=== PATIENT | female | born 1975 | race Hispanic/Latino ===

== ENCOUNTER 2017-12-28 20:49 | Emergency (ER) | payer SELFPAY ==
[2017-12-28 21:11] LABS: #Eosinphils 0.5 thou/uL (0.0-0.7); #Lymphocytes 3.5 thou/uL (1.20-3.40); #Monocytes 0.8 thou/uL (0.11-0.59); %Basophils 0.3 % (0.0-1.0); %Eosinophils 4.6 % (0.0-10.0); %Lymphocytes 32.2 % (21.0-51.0); Hemoglobin 13.7 g/dL (12.0-16.0); Mean Corpuscular HGB CONC 33.7 g/dL (32.0-36.0); Mean Corpuscular Hemoglobin 27.1 pg (27.0-31.0); Mean Corpuscular Volume 80.4 fL (78.0-98.0); Mean Platelet Volume 8.3 fL (7.4-10.4); Platelet Count 328 thou/uL (130-400); RBC Distribution Width 14.9 % (11.5-14.5); Red Blood Cell (RBC) Count 5.04 mill/uL (4.20-5.40); White Blood Cell (WBC) Count 10.7 thou/uL (4.8-10.8)
[2017-12-28 21:32] LABS: ALT (SGPT) 20 U/L (8-55); AST (SGOT) 16 U/L (5-34); Albumin 4.5 g/dL (3.5-5.0); Alkaline Phosphatase 105 U/L (40-150); Anion Gap 13 mmol/L (10-20); BUN (Urea Nitrogen) 8 mg/dL (7.0-18.7); Bilirubin, Total 0.4 mg/dL (0.2-1.2); Calc. Creatinine Clearance 0 mL/min (70-130); Carbon Dioxide 18 mmol/L (22-29); Chloride 110 mmol/L (98-107); Estimated GFR-MDRD 78; Globulin 3.9 g/dL (2.4-3.5); Glucose 106 mg/dL (70-105); Lipase 18 U/L (8-78); Potassium 3.4 mmol/L (3.5-5.1); Protein, Total 8.4 g/dL (6.0-8.3); Sodium 138 mmol/L (136-145)
[2017-12-28] MEDS ORDERED: Ondansetron ODT 8 MG TAB ONE (21:45)
== END 2017-12-28 21:52 | disposition home or self-care (01) ==
LOC: ERS 20:49
DX: R11.2 Nausea with vomiting, unspecified (principal); R19.7 Diarrhea, unspecified; E78.5 Hyperlipidemia, unspecified; E78.2 Mixed hyperlipidemia; I10 Essential (primary) hypertension
CPT/HCPCS: 36415; 80053; 83690; 85025; 99284

== ENCOUNTER 2018-09-01 15:00 | Emergency (ER) | payer SELFPAY ==
[2018-09-01] MEDS ORDERED: Dexamethasone 4 mg/ml Vial ONE (15:52)
[2018-09-01] MEDS ORDERED: Acetaminophen 500 MG TAB ONE (15:52)
--- NOTE | 2018-09-01 16:10 | RAD ---
Chest 2 views HISTORY: Fever. Body aches. Dyspnea. FINDINGS: Cardiac silhouette and pulmonary vasculature are unremarkable. Mediastinum is midline. No c onfluent airspace consolidation, pneumothorax, or pleural fluid are apparent. IMPRESSION: No active cardiopulmonary abnormalities are demonstrated.
== END 2018-09-01 16:47 | disposition home or self-care (01) ==
LOC: ERS 15:00
DX: J20.9 Acute bronchitis, unspecified (principal); E78.5 Hyperlipidemia, unspecified; I10 Essential (primary) hypertension; E11.9 Type 2 diabetes mellitus without complications
CPT/HCPCS: 71046; 87804; J1100

== ENCOUNTER 2019-07-24 08:38 | Emergency (ER) | payer MEDICAID | END 2019-07-24 09:29 | disposition left against medical advice (07) | LOC: ERS 08:38 | DX: Z53.21 Procedure and treatment not carried out due to patient leaving prior to being seen by health care provider (principal) ==

== ENCOUNTER 2019-09-18 13:21 | Emergency (ER) | payer MEDICAID, OTHER ==
[2019-09-18 18:51] LABS: SARS-CoV-2 MS2 Positive; SARS-CoV-2 N Gene Negative; SARS-CoV-2 S Gene Negative; SARS-CoV-2 orf1ab Negative
== END 2019-09-18 14:05 | disposition home or self-care (01) ==
LOC: ERS 13:21
DX: B34.9 Viral infection, unspecified (principal); Z20.828 Contact with and (suspected) exposure to other viral communicable diseases; E78.2 Mixed hyperlipidemia; I10 Essential (primary) hypertension; Z79.84 Long term (current) use of oral hypoglycemic drugs; Z79.899 Other long term (current) drug therapy
CPT/HCPCS: 87635; 99283; U0003

== ENCOUNTER 2020-05-19 17:48 | Inpatient (IN) | payer OTHER, SELFPAY ==
[~2020-05-19 17:48] MED LIST: Iopamidol 370 76% 100 ML VIAL ONE
[2020-05-19 19:18] LABS: Bilirubin Negative (Negative); Blood, Urine Negative (Negative); Clarity Clear (Clear); Glucose, Urine (Dipstick) Greater than 1000 mg/dL (Negative); Ketone, Urine 10 mg/dL (Negative); Leukocyte Negative Leu/uL (Negative); Nitrite Negative (Negative); Protein, Urine (Dipstick) Negative (Neg-Trace); Specific Gravity, Urine 1.025 (1.002-1.036); Urobilinogen Normal mg/dL (Less than 2); pH, Urine 5.5 (5.0-9.0)
[2020-05-19] MEDS ORDERED: Morphine 4 MG/ML VIAL ONE (19:22)
[2020-05-19] MEDS ORDERED: Ondansetron PF 4 MG/2 ML Vial ONE (19:22)
[2020-05-19 19:57] LABS: Hemoglobin 8.8 g/dL (12.0-16.0); Mean Corpuscular HGB CONC 33.3 g/dL (32.0-36.0); Mean Corpuscular Hemoglobin 21.4 pg (27.0-31.0); Mean Corpuscular Volume 79.8 fL (78.0-98.0); Mean Platelet Volume 10.2 fL (7.4-10.4); Platelet Count 181 thou/uL (130-400); Red Blood Cell (RBC) Count 4.12 mill/uL (4.20-5.40); White Blood Cell (WBC) Count 11.1 thou/uL (4.8-10.8)
[2020-05-19 20:00] LABS: Band 20 % (5-11); Eosinophils 2 % (0-10); Lymphocytes 14 % (21-51); MDiff Complete? YES; Monocytes 3 % (0-10); Neutrophil 56 % (42-75); Platelet Morphology Comment Appears Adequate; Polychromasia SLIGHT = 2-3 cells (100X) (0-2/hpf); Reactive Lymphocytes 5 % (0-10); Reflex for Review?? NO
--- NOTE | 2020-05-19 20:06 | CT ---
CT ABDOMEN AND PELVIS WITH IV CONTRAST 05/19/2020 CLINICAL INFORMATION: Upper abdominal pain with pain radiating to each flank. COMPARISON: 08/01/2015 Technique: Multiple contiguous axial CT images are obtained through the abdomen and pelvis with IV contrast. Cor onal reformatted images are provided. FINDINGS: Lower Chest: Lung bases are clear. Vessels: Abdominal aorta is normal in caliber. Abdomen: Portal vein:Patent Gallbladder: Gallbladder calculi are again visualized. Liver: Mild diminished attenuation relative to the spleen suggesting fatty infiltration. The liver is enlarged in craniocaudal dimensions measuring 26 cm. No focal hepatic lesion is identified. Spleen: within normal limits. Pancreas: There is mild pancreatic and peripancreatic inflammatory changes involving the distal body and tail of the pancreas. Findings are suggestive of pancreatitis. Correlation with pancreatic enzymes is recommended. No pancreatic or peripancreatic fluid collection is seen. Adrenals: within normal limits. Kidneys: within normal limits. Bowel: Normal caliber. Appendix: The appendix is visualized and normal in caliber. Peritoneum: No ascites or free air; no fluid collection. Mesentery and Retroperitoneum: No enlarged mesenteric or retroperitoneal lymph nodes. Abdominal Wall: A fat-containing umbilical hernia is again seen. Pelvis: Reproductive Organs: No pelvic masses. Bladder: within normal limits. Bones: Degenerative changes are again seen in the spine. There is spondylolisthesis again present at the lumbosacral junction. IMPRESSION: 1. Evidence of pancreatitis. Correlation with pancreatic enzymes is recommended. 2. Hepatomegaly and hepatic steatosis. 3. Cholelithiasis. 4. Fat-containing umbilical hernia. 5. Spondylolisthesis lumbosacral junction.
[2020-05-19 20:40] LABS: Anion Gap 19 mmol/L (10-20); Carbon Dioxide 18 mmol/L (22-29); Chloride 102 mmol/L (98-107); Potassium 3.7 mmol/L (3.5-5.1); Sodium 136 mmol/L (136-145)
[2020-05-19 20:41] LABS: BUN (Urea Nitrogen) 12 mg/dL (7.0-18.7); Bilirubin, Total 0.2 mg/dL (0.2-1.2); Calc. Creatinine Clearance 0 mL/min (70-130); Calcium 7.9 mg/dL (7.8-10.44); Glucose 238 mg/dL (70-105); Protein, Total 6.2 g/dL (6.0-8.3)
[2020-05-19 20:42] LABS: AST (SGOT) 12 U/L (5-34); Albumin 3.8 g/dL (3.5-5.0); Alkaline Phosphatase 78 U/L (40-110); Globulin 2.4 g/dL (2.4-3.5)
[2020-05-19 20:45] LABS: ALT (SGPT) 12 U/L (8-55); Lipase 53 U/L (8-78)
[2020-05-19] MEDS ORDERED: Ondansetron PF 4 MG/2 ML Vial IVP PRN (23:45)
[2020-05-19] MEDS ORDERED: Ondansetron ODT 4 MG TAB SL PRN (23:45)
[2020-05-19] MEDS ORDERED: Sodium Chloride 0.9% 1,000 ML IV SCH (23:45)
[2020-05-19] MEDS ORDERED: Promethazine HCl 25 MG/ML VIAL IM PRN (23:51)
--- NOTE | 2020-05-19 23:56 | PDOC.HHP ---
Hospitalist HPI - History of Present Illness Abdominal pain History of Present Illness: This is a 44-year-old female patient with a history of hyperlipidemia and hypertension who presents with ongoing abdominal pain for days duration. Patient notes that she woke up this morning with the pain which he thought may be due to dyspepsia. She took some antacids which did not help. Pain became subsequently worse radiating to her back with no obvious aggravating or relieving factors. She presented here for further evaluation. At presentation her vitals were BP 177/100, pulse 112, respiratory 19, temperatu re 98.5 saturating 98% on room air. Labs showed mild leukocytosis of 11.1, anemia of 8.8 from a baseline of 13.7 about 2 years ago. Liver enzymes were within normal limits. CT abdomen was concerning from pancreatitis however lipase level was 53. Patient notes having consumed excessive amounts of alcohol around the New 's Day. Gallbladder calculi were visualized on CT. She is not on any medications known to trigger pancreatitis. She was started on pain relief with morphine and IV fluids at 150 mils per hour. Hospitalist team was consulted to admit. Hospitalist ROS - Review of Systems Constitutional: reports: malaise. denies: fever, chills, sweats, weakness Respiratory: denies: cough, shortness of breath, hemoptysis, SOB with excertion Cardiovascular: denies: chest pain, palpitations, orthopnea, paroxysmal noc. dyspnea Gastrointestinal: reports: nausea, vomiting, abdominal pain. denies: diarrhea, constipation Genitourinary: denies: dysuria, frequency, incontinence, hematuria Musculoskeletal: denies: neck pain, shoulder pain, arm pain Neurological: denies: weakness, numbness, incoordination, change in speech All other systems reviewed; all pertinent +/- noted in HPI/Subj - Medication Medications: Medications: Currently refer to ambulatory order list. Allergies: No known drug allergies Hospitalist History - Past Medical History Other Medical History: Hypertension, hyperlipidemia. - Past Surgical History Other Surgical History: Bilateral tubal ligation. - Family History Family History: reports: no pertinent history - Social History Smoking Status: Never smoker Alcohol: reports: None Living Situation: With Family - Exam General Appearance: awake alert General - other findings: In no acute distress Eye: PERRL, anicteric sclera Heart: RRR, no murmur, no gallops, no rubs, normal peripheral pulses Respiratory: CTAB, no wheezes, no rales, no ronchi, normal chest expansion Gastrointestinal: soft, non-distended, normal bowel sounds, tender to palpation Extremities: no cyanosis, no clubbing, no edema Neurological: cranial nerve grossly intact, no weakness, no focal deficits Musculoskeletal: normal tone Psychiatric: normal affect, normal behavior, A&O x 3 Hospitalist Results - Labs Result Diagrams: 05/19/20 18:51 05/19/20 18:51 Lab results: WBC 11.1 thou/uL (4.8-10.8) H 05/19/20 18:51 Hgb 8.8 g/dL (12.0-16.0) L 05/19/20 18:51 Hct 26.4 % (36.0-47.0) L 05/19/20 18:51 MCV 79.8 fL (78.0-98.0) 05/19/20 18:51 Plt Count 181 thou/uL (130-400) 05/19/20 18:51 Band Neuts % (Manual) 20 % (5-11) H 05/19/20 18:51 Sodium 136 mmol/L (136-145) 05/19/20 18:51 Potassium 3.7 mmol/L (3.5-5.1) 05/19/20 18:51 Chloride 102 mmol/L (98-107) 05/19/20 18:51 Carbon Dioxide 18 mmol/L (22-29) L 05/19/20 18:51 BUN 12 mg/dL (7.0-18.7) 05/19/20 18:51 Creatinine 0.65 mg/dL (0.6-1.1) 05/19/20 18:51 Glucose 238 mg/dL (70-105) H 05/19/20 18:51 Calcium 7.9 mg/dL (7.8-10.44) 05/19/20 18:51 Total Bilirubin 0.2 mg/dL (0.2-1.2) 05/19/20 18:51 AST 12 U/L (5-34) 05/19/20 18:51 ALT 12 U/L (8-55) 05/19/20 18:51 Alkaline Phosphatase 78 U/L (40-110) 05/19/20 18:51 Troponin I Less than 0.010 ng/mL (< 0.028) 05/19/20 18:51 Serum Total Protein 6.2 g/dL (6.0-8.3) 05/19/20 18:51 Albumin 3.8 g/dL (3.5-5.0) 05/19/20 18:51 Lipase 53 U/L (8-78) 05/19/20 18:51 Urine Ketones 10 mg/dL (Negative) A 05/19/20 17:53 Urine Blood Negative (Negative) 05/19/20 17:53 Urine Nitrite Negative (Negative) 05/19/20 17:53 Ur Leukocyte Esterase Negative Stephanie/uL (Negative) 05/19/20 17:53 Hospitalist H&P A/P - Plan Plan: This a 44-year-old female patient with a history of hypertension hyperlipidemia presenting with nausea vomiting with epigastric pain with evaluation concerning for acute pancreatitis. Acute pancreatitis Patient has intensive CT evidence Started on IV fluidswe will continue As needed pain medications. Right upper quadrant ultrasound scan although liver enzymes are normal, she has cholelithiasis. She has no other explanation for her pancreatitis. GI evaluation in a.m. Cholelithiasis Right upper quadrant ultrasound: Enlarged liver Unclear significance Hypertension Continue home meds once verified. VT prophylaxisLovenox CODE STATUSfull code
[2020-05-20 00:07] VITALS: BMI 37.2
[2020-05-20] MEDS: Morphine 2 MG/ML VIAL SLOW IVP PRN ×2 (00:32→04:42)
[2020-05-20] MEDS: Sodium Chloride 0.9% 1,000 ML IV SCH ×2 (06:00)
[2020-05-20 07:22] LABS: Hemoglobin A1c 8.4 % (4.0-6.0)
[2020-05-20 07:23] LABS: BUN (Urea Nitrogen) Less than 4 mg/dL (7.0-18.7); Calc. Creatinine Clearance 179 mL/min (70-130); Calcium 7.9 mg/dL (7.8-10.44); Chloride 100 mmol/L (98-107); Glucose 222 mg/dL (70-105); Potassium 3.6 mmol/L (3.5-5.1); Sodium 131 mmol/L (136-145)
[2020-05-20 07:26] LABS: Carbon Dioxide Less than 8 mmol/L (22-29)
--- NOTE | 2020-05-20 07:45 | ULT ---
Sonogram right upper quadrant HISTORY: Pancreatitis. Abdomen pain. FINDINGS: Multiple shadowing stones in the dependent portion of the gallbladder lumen. Patient was re portedly not tender over the gallbladder fossa at the time of the exam. Common duct is 0.4 cm diameter. Liver is diffusely echogenic and enlarged without focal mass or intrahepatic biliary dilatation. No f ree fluid. Small amount of fluid around the pancreas correlates with edema described on recent CT. IMPRESSION : Cholelithiasis. No evidence of acute biliary obstruction Hepato-steatosis.
--- NOTE | 2020-05-20 08:23 | PDOC.HOSPP ---
- Subjective Encounter Date: 05/20/20 Encounter Time: 12:00 Subjective: Patient reports pain improved, more on the left than the right now. No trouble breathing. - Objective Vital Signs & Weight: Vital Signs (12 hours) Temp Pulse Resp BP BP Pulse Ox 05/20/20 07:59 98.6 F 100 18 145/84 H 97 05/20/20 04:00 98.3 F 102 H 18 137/75 94 L 05/20/20 00:00 98.3 F 96 16 133/79 96 05/19/20 23:27 98.3 F 96 133/79 96 Weight Weight 210 lb 2 oz Result Diagrams: 05/20/20 06:13 05/20/20 06:12 Additional Labs: Accuchecks 05/20/20 04:15 POC Glucose 192 H Hospitalist ROS - Review of Systems Constitutional: denies: fever, chills Respiratory: denies: cough, shortness of breath Cardiovascular: denies: chest pain, palpitations Gastrointestinal: reports: abdominal pain. denies: nausea, vomiting - Medication Medications: Active Medications Generic Name Dose Route Start Last Admin Trade Name Freq PRN Reason Stop Dose Admin Sodium Chloride 1,000 mls @ 150 mls/hr 05/19/20 23:45 05/20/20 06:00 Normal Saline 0.9% IV Not Given .[id number] [facility] Morphine Sulfate 2 mg 05/19/20 23:55 05/20/20 04:42 Morphine 2 Mg/Ml Vial SLOW IVP 2 mg Q4H PRN Administration Pain - Exam General Appearance: NAD, awake alert ENT: moist mucosa Heart: RRR, no murmur, no gallops, no rubs Respiratory: CTAB, no wheezes, no rales, no ronchi Gastrointestinal: soft, non-distended, normal bowel sounds, no guarding, no rigidity, tender to palpation Gastrointestinal - other findings: TATY, mild Extremities: no edema Psychiatric: normal affect, normal behavior, A&O x 3 Hosp A/P - Plan This a 44-year-old female patient with a history of hypertension hyperlipidemia presenting with nausea vomiting with epigastric pain with evaluation concerning for acute pancreatitis. Acute pancreatitis Patient has intensive CT evidence Started on IV fluidswe will continue As needed pain medications. Right upper quadrant ultrasound scan although liver enzymes are normal, she has cholelithiasis. She has no other explanation for her pancreatitis. GI evaluation in a.m. Severe Metabolic Acidosis -check for lactic acid, ketones, drug screens. IV fluids. Check ABG. If pH severely low will need bicarb drip. Possible RTA. Cholelithiasis Right upper quadrant ultrasound: Enlarged liver Unclear significance Hypertension Continue home meds once verified. VT prophylaxisLovenox CODE STATUSfull code
[2020-05-20] MEDS ORDERED: Sodium Chloride 0.9% 1,000 ML IV SCH (08:30)
[2020-05-20] MEDS ORDERED: Prevnar 13-Val Conj/PF 0.5 ML SYRINGE IM ONE (09:00)
[2020-05-20] MEDS ORDERED: FLU VACC QS2020-21(6MOS UP)/PF 60 MCG/0.5 ML SYRINGE IM ONE (09:00)
[2020-05-20 09:02] LABS: #Basophils 0.1 thou/uL (0.0-0.2); #Eosinphils 0.4 thou/uL (0.0-0.7); #Lymphocytes 2.2 thou/uL (1.20-3.40); #Monocytes 0.8 thou/uL (0.11-0.59); #Neutrophils 8.1 thou/uL (1.40-6.50); %Basophils 0.6 % (0.0-1.0); %Eosinophils 3.6 % (0.0-10.0); %Lymphocytes 18.9 % (21.0-51.0); %Monocytes 7.2 % (0.0-10.0); %Neutrophils 69.7 % (42.0-75.0); Hemoglobin 11.6 g/dL (12.0-16.0); Mean Corpuscular HGB CONC 39.5 g/dL (32.0-36.0); Mean Corpuscular Hemoglobin 31.9 pg (27.0-31.0); Mean Corpuscular Volume 80.7 fL (78.0-98.0); Mean Platelet Volume 10.3 fL (7.4-10.4); Platelet Count 180 thou/uL (130-400); Red Blood Cell (RBC) Count 3.63 mill/uL (4.20-5.40); White Blood Cell (WBC) Count 11.6 thou/uL (4.8-10.8)
[2020-05-20] MEDS: Enoxaparin Sodium 40 MG/0.4 ML SYRINGE SC SCH (09:03)
[2020-05-20 09:11] LABS: SARS-CoV-2 MS2 Positive; SARS-CoV-2 N Gene Negative; SARS-CoV-2 S Gene Negative; SARS-CoV-2 by NAA Not Detected (NotDetected); SARS-CoV-2 orf1ab Negative
[2020-05-20 09:55] LABS: Acetaminophen Less than 6.0 mcg/mL (10.0-30.0); Alcohol Less than 10 mg/dL (Less than 10); Salicylate Less than 8.0 mg/dL (15.0-30.0)
[2020-05-20 12:03] LABS: Lactic Acid 1.7 mmol/L (0.5-2.2)
[2020-05-20] MEDS ORDERED: Ondansetron PF 4 MG/2 ML Vial IVP PRN (12:51)
[2020-05-20] MEDS ORDERED: Ondansetron ODT 4 MG TAB SL PRN (12:51)
[2020-05-20] MEDS ORDERED: Dextrose 50% Abboject 50 ML SYRINGE SLOW IVP PRN (12:54)
[2020-05-20] MEDS ORDERED: HumaLOG 300 UNITS/3 ML VIAL SC PRN ×2 (12:54)
[2020-05-20] MEDS ORDERED: Dextrose 5% in Water 1,000 ML IV PRN (12:54)
[2020-05-20 13:19] LABS: Base Excess (BEa) -2.8 mEq/L (-2.0 to +3.0); CO2 Tension 38.2 mmHg (35.0-45.0); Calcium, Ionized (arterial) 1.17 mmol/L (1.12-1.30); Carboxyhemoglobin (COHb) 0.6 gm% (0.0-3.0); Hemoglobin (Hb) 10.7 g/dL (12.0-16.0); O2 Tension (PaO2), arterial 70.8 mmHg (80.0-100.0); Potassium - ABG Lab 3.76 mmol/L (3.70-5.30); pH, Arterial 7.38 (7.35-7.45)
[2020-05-20 13:24] LABS: Puncture Site LRA
[2020-05-20] MEDS: Lactated Ringer's 1,000 ML IV SCH ×2 (14:01→21:00)
--- NOTE | 2020-05-20 14:43 | CON ---
DATE OF CONSULTATION: 05/20/2020 REQUESTING PHYSICIAN: Dr. King. REASON FOR CONSULTATION: Pancreatitis. HISTORY OF PRESENT ILLNESS: Abby Pickens is a 44-year-old woman with a history of diabetes, obesity, hypertension, and hyperlipidemia. She has no prior history of gastrointestinal, pancreatic, or biliary disease or illness. She was admitted to the hospital yesterday with acute pancreatitis. Essentially, she has no chronic gastrointestinal symptoms, but early in the morning yesterday she had a fairly acute onset of pain in the epigastrium/right upper quadrant. This is fairly constant. She thought it was indigestion and took some Tums, but this was not effective at all. The pain escalated with a lot of bloating sensation in the upper abdomen. She started to have some radiation to the back, particularly with deep inspiration. She became nauseated and had several episodes of nonbloody emesis, which prompted her presentation. Upon arrival, laboratory studies demonstrated normal LFTs, normal amylase and lipase, but CT scan of the abdomen and pelvis does demonstrate peripancreatic edema and fluid around the distal body and tail of the pancreas. Ultrasound imaging also demonstrate gallstones with normal common bile duct. Overnight, the patient has done pretty well, has remained hemodynamically stable and normal saline running at 150 mL/h, n.p.o. status. However, she is acidotic today. There is no respiratory distress. She reports alcohol use is rare, but she did have several drinks 3 days ago on [place]. REVIEW OF SYSTEMS: Full review of systems including constitutional, head, eyes, ears, nose, throat, GI, , cardiovascular, respiratory, musculoskeletal, and neurologic systems is negative except as noted in the HPI. PAST MEDICAL HISTORY: Obesity, diabetes, hypertension, hyperlipidemia, bilateral tubal ligation. OUTPATIENT MEDICATIONS: 1. Lisinopril. 2. Metformin. 3. Glimepiride. ALLERGIES: NO KNOWN DRUG ALLERGIES. INPATIENT MEDICATIONS: 1. Lovenox. 2. Morphine p.r.n. 3. Zofran p.r.n. 4. Normal saline 150 mL/h. FAMILY HISTORY: Noncontributory. SOCIAL HISTORY: No smoking. No drug use. Alcohol use is rare, but she did have several drinks 3 days ago on s Francesca. PHYSICAL EXAMINATION: VITAL SIGNS: Temperature 98.5, pulse is 97, blood pressure 123/77, 95% oxygen saturation on room air. GENERAL: A 44-year-old woman, lying in bed comfortably, in no acute distress. SKIN: No jaundice. No rashes were palpable. HEENT: Eyes, no scleral icterus. Extraocular movements intact. ENT, mucous membranes moist. No oral lesions. LYMPH: No submandibular or supraclavicular lymphadenopathy. THYROID: Nontender to palpation. HEART: Regular rate and rhythm. LUNGS: Clear to auscultation bilaterally. ABDOMEN: Nondistended. Bowel sounds present though hypoactive. The abdomen is soft. There is some tenderness to palpation in the epigastrium, but no guarding or rebound tenderness. No significant tenderness in the right upper quadrant. EXTREMITIES: No peripheral edema. VESSELS: Radial pulses 2+ bilaterally. NEURO: Cranial nerves 2 through 12 intact bilaterally. No focal deficits. LABORATORY STUDIES: Hemoglobin level was initially 8.8, but this morning is 11.6; hematocrit initially 26.4, but now 29.3; WBC 11.6; platelets 180. Notably, plasma appeared lipemic on blood draw on admission yesterday. Sodium is 131, potassium 3.6, chloride 100, bicarb less than 8, BUN less than 4, creatinine only 0.61, glucose 219. Hemoglobin A1c elevated to 8.4%. Lipase normal at 53, amylase normal at 34.8, triglycerides normal at 104. Troponin negative. LFTs all normal with total bilirubin 0.2, alkaline phosphatase 78, AST 12, ALT 12, albumin 3.8. Beta hydroxybutyrate was elevated to 0.39. Urinalysis was positive for glucose and ketones. COVID PCR was negative. Blood levels for alcohol, acetaminophen, and salicylates were all negative. IMAGING STUDIES: CT of the abdomen and pelvis demonstrated changes of mild pancreatitis around the distal body and tail of the pancreas with no peripancreatic fluid collection or other complication. There is a fat containing umbilical hernia. Fatty liver with hepatomegaly and also gallstones. Abdominal ultrasound confirmed gallstones within the gallbladder, but normal common bile duct of only 4 mm. ASSESSMENT AND PLAN: 1. Acute pancreatitis, first episode. 2. Cholelithiasis. 3. Metabolic acidosis, likely multifactorial. The patient's clinical presentation and CT findings are indeed consistent with acute pancreatitis, despite the normal lipase and amylase values. Daily trends of amylase and lipase are really of limited value, so I do agree with the diagnosis of acute pancreatitis. This would be her first episode. I am not sure of the reason for this severity of her metabolic acidosis, though I do note the ketonuria, so this is probably multifactorial. Recommend continuing current supportive care with n.p.o. status, antiemetics and analgesia as needed, and IV fluids. Consider switching from normal saline to lactated Ringer's, current rate of 150 mL/h seems reasonable. Aside from the acidosis, other lab parameters are all favorable including the BUN. Would trend CBC, CMP, and lipase tomorrow. With regard to the etiology of the pancreatitis, this is not 100% clear. There is no evidence of choledocholithiasis, but she does have cholelithiasis, and may have passed a stone. She did indulge in alcohol 3 days ago, but I feel this is less likely to be alcohol induced than biliary pancreatitis. Accordingly, it would be appropriate to consider general surgical consultation versus outpatient referral for cholecystectomy once her current episode of pancreatitis has resolved. Thank you for the consultation. Please call anytime with questions or concerns. Job ID: [id number]
[2020-05-20] MEDS ORDERED: Acetaminophen 325 MG TAB PO PRN (21:07)
[2020-05-21] MEDS: Lactated Ringer's 1,000 ML IV SCH ×2 (04:31→10:00)
[2020-05-21 06:31] LABS: #Eosinphils 0.3 thou/uL (0.0-0.7); #Lymphocytes 2.1 thou/uL (1.20-3.40); #Monocytes 0.7 thou/uL (0.11-0.59); #Neutrophils 5.8 thou/uL (1.40-6.50); %Basophils 0.3 % (0.0-1.0); %Eosinophils 3.1 % (0.0-10.0); %Lymphocytes 23.7 % (21.0-51.0); %Monocytes 7.6 % (0.0-10.0); %Neutrophils 65.4 % (42.0-75.0); Hemoglobin 10.2 g/dL (12.0-16.0); Mean Corpuscular HGB CONC 35.9 g/dL (32.0-36.0); Mean Corpuscular Hemoglobin 29.3 pg (27.0-31.0); Mean Corpuscular Volume 81.5 fL (78.0-98.0); Mean Platelet Volume 11.1 fL (7.4-10.4); Platelet Count 179 thou/uL (130-400); Red Blood Cell (RBC) Count 3.48 mill/uL (4.20-5.40); White Blood Cell (WBC) Count 8.8 thou/uL (4.8-10.8)
[2020-05-21 07:11] LABS: ALT (SGPT) 9 U/L (8-55); AST (SGOT) 16 U/L (5-34); Albumin 3.1 g/dL (3.5-5.0); Alkaline Phosphatase 61 U/L (40-110); Anion Gap 23 mmol/L (10-20); BUN (Urea Nitrogen) Less than 4 mg/dL (7.0-18.7); Bilirubin, Total 0.5 mg/dL (0.2-1.2); Calc. Creatinine Clearance 176 mL/min (70-130); Calcium 8.4 mg/dL (7.8-10.44); Carbon Dioxide 14 mmol/L (22-29); Chloride 101 mmol/L (98-107); Globulin 4.1 g/dL (2.4-3.5); Glucose 212 mg/dL (70-105); Lipase 21 U/L (8-78); Potassium 3.8 mmol/L (3.5-5.1); Protein, Total 7.2 g/dL (6.0-8.3); Sodium 134 mmol/L (136-145)
[2020-05-21 07:41] VITALS: BP 115/73; TEMP 98.3
[2020-05-21] MEDS: Enoxaparin Sodium 40 MG/0.4 ML SYRINGE SC SCH (13:03)
[2020-05-21 14:00] LABS: Amphetamine Not Detected (NotDetected); Barbiturates Screen Not Detected (NotDetected); Benzodiazepine Screen Not Detected (NotDetected); Cocaine Metabolite Screen Not Detected (NotDetected); Medtox Reader # READER 4; Methadone Not Detected (NotDetected); Methamphetamine Not Detected (NotDetected); Opiate Screen Not Detected (NotDetected); Oxycodone Screen Not Detected (NotDetected); Phencyclidine (PCP) Not Detected (NotDetected); THC/Cannabinoid Screen Not Detected (NotDetected); Tricyclic Screen Not Detected (NotDetected)
[2020-05-21 14:01] LABS: Medtox Control Line Valid? VALID (VALID)
--- NOTE | 2020-05-21 14:17 | CON ---
DATE OF CONSULTATION: 05/21/2020 REQUESTING PHYSICIAN: Ryan Martínez MD HISTORY OF PRESENT ILLNESS: This is a 44-year-old woman. She is a G8, P8, who was admitted on 05/19/2020 with insidious onset epigastric abdominal pain, radiating to her back. She describes the pain initially as indigestion type. Antacids failed to resolve the pain. The pain intensified to a high 9/10. As a result, the patient presented to emergency department. She tried to eat breakfast that day, which provoked nausea and nonbilious emesis. She denies any fevers or chills. She denies any abdominal bloating, hematochezia, or melena. The patient reports having had at least 9 beers on 05/17. She has not experienced similar pain in the past. Last time she had anything to eat or drink was 2 days ago. At the time of my evaluation, she reports only minimal amount of pain, mostly in the left upper quadrant. PAST MEDICAL HISTORY: Pertinent for: 1. Essential hypertension. 2. Type 2 diabetes mellitus. PAST SURGICAL HISTORY: Pertinent for: 1. x2. 2. Bilateral tubal ligation. SOCIAL HISTORY: The patient denies any cigarette smoking or illicit drug abuse. She admits to occasional intake of ethanol in moderate amounts, although she was binge drinking to celebrate the New Year. FAMILY HISTORY: Notable for hyperlipidemia, diabetes mellitus, and essential hypertension. She denies any family history of colon cancer or heart disease. PREHOSPITALIZATION MEDICATIONS: Include: 1. Metformin 1000 mg p.o. b.i.d. 2. Lisinopril 10 mg p.o. daily. 3. Glimepiride 4 mg p.o. daily. ALLERGIES: THE PATIENT DENIES ANY KNOWN DRUG ALLERGIES. REVIEW OF SYSTEMS: Ten-point review of systems essentially unremarkable except as stated in past medical history and chief complaint. PHYSICAL EXAMINATION: GENERAL: A 44-year-old morbidly obese woman, who is otherwise coherent and interactive and appears stated age. The patient is alert and oriented x3. She appears to be in no acute distress at the time of my evaluation. VITAL SIGNS: Today include blood pressure 115/73, pulse is 94, respiratory rate is 18, maximum temperature in the last 24 hours is 99.8 degrees Fahrenheit, and oxygen saturation is 94% on room air. HEENT: Normocephalic and atraumatic. Pupils are equally round and reactive to light and accommodation. She has no scleral icterus present. HEART: Regular rate and rhythm. No murmurs or gallops auscultated. LUNGS: Clear to auscultation bilaterally. Her breathing regular and unlabored. ABDOMEN: Soft and obese with minimum left upper quadrant tenderness to palpation. She has no peritoneal signs on examination. Liver and spleen otherwise nonpalpable below costal margin. She has a healed low Pfannenstiel incision, consistent with previous history of C-sections. NEUROLOGIC: No focal deficits present. LABORATORY FINDINGS: Today include a CBC with normal white blood cell count at 8800, hemoglobin and hematocrit stable at 10.2 and 28.4 respectively, and platelet count is 174,000. Metabolic profile: Sodium 134, potassium 3.8, chloride is 101, bicarb is 14, BUN is less than 4, creatinine is 0.62, glucose is 212, total bilirubin is 0.5, AST and ALT are 16 and 9 respectively, and alkaline phosphatase is 61. Serum lipase today is 21 compared to 50 units/L on 05/19/2020. Anion gap is 23 mmol/L. I personally reviewed CT scan of the abdomen and pelvis obtained on 05/19/2020, which is remarkable for pancreatic and peripancreatic inflammatory process involving the body and tail of the pancreas. Incidental cholelithiasis is noted. Abdominal ultrasound obtained on 05/20/2020 reveals intraluminal gallstones without any pericholecystic fluid or gallbladder wall thickening present. Common bile duct is normal in diameter for this patient's age at 4.1 mm. IMPRESSIONS: 1. Resolving acute pancreatitis, which I suspect is alcohol pancreatitis given onset of pain was within 48 hours of alcohol binge drinking. 2. Cholelithiasis without any radiographic or laboratory evidence of acute cholecystitis. 3. Type 2 diabetes mellitus with resolving diabetic ketoacidosis. RECOMMENDATIONS: 1. Continue with conservative management. The patient may resume oral intake at the discretion of Primary Service. 2. There is no acute surgical indication for this patient at this time as I suspect that abdominal pain is unrelated to gallstones. 3. The patient may be discharged home to follow up with General Surgery in the future as needed if the cholelithiasis becomes symptomatic. Above findings and recommendations have been discussed with the patient who indicates understanding information given. I have answered her questions. Thank you again, Dr. Martínez, for allowing me the opportunity to participate in the care of this patient. Job ID: [id number]
--- NOTE | 2020-05-21 15:56 | PDOC.DS.DS ---
Provider - Provider Date of Admission: 05/20/20 08:19 Date of Discharge: 05/21/20 Admitting Provider: Ray Elena MD Consultations: Gastroentrology (Dr. Ryan Morales), General Surgery (Dr. Jeffrey Marcial) Primary Care Physician: Gerda Pham DO Course - Hospital Course Hospital Course: Discharge diagnosis: 1. Acute pancreatitis 2. Acute pancreatitis most likely secondary to alcohol abuse 3. Cholelithiasis 4. Hyponatremia Hospital course: Patient is a pleasant 44-year-old lady who was admitted to the hospital on May 19, 2020 for acute pancreatitis. She improved with pain medications and intravenous fluids. CT scan of the abdomen and pelvis done on May 19 and evidence of pancreatitis, hepatomegaly and hepatic steatosis, cholelithiasis, fat-containing umbilical hernia and spondylolisthesis of lumbosacral junction. Abdominal ultrasound showed Allyn lithiasis with no evidence of acute biliary o bstruction. She also had hepatosteatosis. She was seen by gastroenterology and general surgery services. She improved clinically. She has been advised to avoid alcohol abuse. It was felt that her acute pancreatitis was most likely secondary to alcohol abuse and not secondary to cholelithiasis. She is being discharged home in a stable condition. Many thanks for allowing me to participate in your patient's care. Please feel free to contact me with any questions or concerns. Discharge destination: Home Total amount of time spent coordinating this discharge: 32 minutes Resuscitation Status: 05/19/20 23:51 Resuscitation Status Routine Resuscitation Status: FULL: Full Resuscitation - Labs Lab Results: 05/21/20 05:49 05/21/20 05:49 Abnormal Lab Results - Last 48 hrs 05/19/20 17:53: Urine Glucose (UA) Greater than 1000 A, Urine Ketones 10 A 05/19/20 18:51: Carbon Dioxide 18 L 05/19/20 18:51: WBC 11.1 H, RBC 4.12 L, Hgb 8.8 L, Hct 26.4 L, MCH 21.4 L, Band Neuts % (Manual) 20 H, Lymphocytes % (Manual) 14 L 05/20/20 06:12: Sodium 131 L, Carbon Dioxide Less than 8 L*, BUN Less than 4 L 05/20/20 06:13: WBC 11.6 H, RBC 3.63 L, Hgb 11.6 L, Hct 29.3 L, MCH 31.9 H, MCHC 39.5 H, Lymphocytes % 18.9 L, Neutrophils # 8.1 H, Monocytes # 0.8 H 05/20/20 06:13: Hemoglobin A1c 8.4 H 05/20/20 08:29: B-Hydroxybutyrate 0.39 H 05/20/20 08:29: Salicylates Less than 8.0 L, Acetaminophen Less than 6.0 L 05/20/20 13:18: ABG pO2 70.8 L, ABG O2 Content 14.1 L, ABG Base Excess -2.8 L, ABG Hematocrit 31.0 L, ABG Hemoglobin 10.7 L, ABG Oxyhemoglobin 93.4 L, ABG Deoxyhemoglobin 5.7 H, A-a O2 Gradient 31.180 H 05/21/20 05:49: Sodium 134 L, Carbon Dioxide 14 L, Anion Gap 23 H, BUN Less than 4 L, Albumin 3.1 L, Globulin 4.1 H, Albumin/Globulin Ratio 0.8 L 05/21/20 05:49: RBC 3.48 L, Hgb 10.2 L, Hct 28.4 L, MPV 11.1 H, Monocytes # 0.7 H - Physical Exam Vitals: Vital Signs (12 hours) Temp Pulse Resp BP Pulse Ox 05/21/20 07:41 98.3 F 94 18 115/73 94 L Weight Weight 210 lb 2 oz Physical Exam: The patient was seen and examined on the day of discharge. Patient denies chest pain or shortness of breath. Vital signs are stable. S1 and S2 are heard. Lungs are clear to auscultation bilaterally. Plan - Discharge Medications Home Medications: Medication Instructions Recorded Confirmed Type Glimepiride [Amaryl] 4 mg PO QAM- 10/29/16 05/19/20 History Lisinopril 10 mg PO DAILY 10/29/16 05/19/20 History metFORMIN HCl 1,000 mg PO BID- 10/29/16 05/19/20 History Allergies: No Known Drug Allergies Allergy (Verified 05/19/20 23:41) PER patient - Discharge Instructions Discharge Instructions:: Avoid alcohol abuse. Activity:: Activity as Tolerated Nourishment:: Diabetic Diet - Follow up Plan Referrals: Gerda Pham DO [Primary Care Provider] - 3 Days Disposition: HOME Quality - Care Measures CORE MEASURES:: N/A
--- NOTE | 2020-05-21 16:50 | PRG ---
DATE OF SERVICE: 05/21/2020 REASON FOR CONSULTATION: Acute pancreatitis. SUBJECTIVE: The patient states that she is doing better today with significant improvement in her abdominal pain. She continues to have midepigastric abdominal pain, but she characterizes it now more of a severity of 2/10, that is nonradiating. She has not had anything to eat today and is becoming hungry. Otherwise, she denies any acute events or problems overnight. She has been able to tolerate the pain medication without difficulty and has IV fluids running at approximately 150 mL/h. She currently denies any nausea, vomiting, fevers, chills, GI bleeding, dysphagia, or odynophagia. OBJECTIVE: VITAL SIGNS: Temperature 98.3, pulse 94, blood pressure 115/73, respiratory rate 18, saturating 94% on room air. GENERAL: The patient was lying in bed, in no acute distress. Alert and oriented x4. CARDIOVASCULAR: Regular rate and rhythm. RESPIRATORY: Clear to auscultation bilaterally. ABDOMEN: Normoactive bowel sounds. Soft. Mild abdominal distention. Tenderness to palpation only in the midepigastric region. EXTREMITIES: No cyanosis, clubbing, or edema. LABORATORY DATA: CBC with a white blood cell count of 8.8, hemoglobin 10.2, hematocrit 28.4, platelets 179. Chemistry with a sodium of 134, potassium 3.8, chloride 101, CO2 14, BUN less than 4, creatinine 0.62, glucose 212. AST 16, ALT 9, alkaline phosphatase 61, total bilirubin 0.5. IMAGING DATA: No current GI imaging is available for review. ASSESSMENT AND PLAN: 1. Acute pancreatitis with unknown etiology. The patient is presenting with imaging findings and clinical history consistent with acute pancreatitis with no clear etiology at this time, but would favor alcohol use versus possible diabetic ketoacidosis on admission. 2. Cholelithiasis with possible microlithiasis. 3. Metabolic acidosis, resolving. RECOMMENDATIONS: 1. Would start the patient on a clear liquid diet and advance slowly to a full liquid diet over the next 24 to 48 hours if the patient's pain does not return. 2. Would decrease the IV fluid rate to approximately 100 mL/h. 3. Continue with strict/tight glucose control. 4. We will strongly recommend alcohol cessation as an outpatient. 5. Would consider cholecystectomy either during this hospitalization or as an outpatient for possible microlithiasis contributing to her acute pancreatitis (once that has resolved). 6. Pain control per primary team. We will continue to follow. Please call with any questions. Job ID: [id number]
== END 2020-05-21 17:35 | disposition home or self-care (01) | DRG 438 ==
LOC: ERS 17:48 → T4-B 21:57 → OBSVTOIN 05-20 08:19
PROVIDERS: ADMIT Student in an Organized Health Care Education/Training Program; ATTEND Internal Medicine
DX: K85.20 Alcohol induced acute pancreatitis without necrosis or infection (principal); E11.10 Type 2 diabetes mellitus with ketoacidosis without coma; F10.188 Alcohol abuse with other alcohol-induced disorder; E87.1 Hypo-osmolality and hyponatremia; D64.9 Anemia, unspecified; D72.829 Elevated white blood cell count, unspecified; I10 Essential (primary) hypertension; K80.20 Calculus of gallbladder without cholecystitis without obstruction; E78.5 Hyperlipidemia, unspecified; E66.01 Morbid (severe) obesity due to excess calories; Z98.51 Tubal ligation status; Z79.84 Long term (current) use of oral hypoglycemic drugs; Z79.899 Other long term (current) drug therapy; Z68.37 Body mass index [BMI] 37.0-37.9, adult; Z20.822 Contact with and (suspected) exposure to COVID-19
CPT/HCPCS: 36415; 36416; 36600; 74177; 76705; 80048; 80053; 80306; 80307; 81003; 82010; 82150; 82805; 83036; 83605; 83690; 84478; 84484; 85025; 87635; 90471; 90662; 93005; 96374; 96375; 96376; G0008; G0378; J1650; J2270; J2405; Q9967; U0003

== ENCOUNTER 2020-06-03 09:31 | Emergency (ER) | payer SELFPAY ==
[2020-06-03 10:27] LABS: #Basophils 0.2 thou/uL (0.0-0.2); #Eosinphils 0.1 thou/uL (0.0-0.7); #Lymphocytes 1.7 thou/uL (1.20-3.40); #Monocytes 0.4 thou/uL (0.11-0.59); #Neutrophils 5.7 thou/uL (1.40-6.50); %Basophils 1.9 % (0.0-1.0); %Eosinophils 0.9 % (0.0-10.0); %Lymphocytes 21.4 % (21.0-51.0); %Monocytes 5.4 % (0.0-10.0); %Neutrophils 70.4 % (42.0-75.0); Hemoglobin 12.6 g/dL (12.0-16.0); Mean Corpuscular HGB CONC 33.6 g/dL (32.0-36.0); Mean Corpuscular Hemoglobin 27.3 pg (27.0-31.0); Mean Corpuscular Volume 81.1 fL (78.0-98.0); Mean Platelet Volume 9.7 fL (7.4-10.4); Platelet Count 215 thou/uL (130-400); RBC Distribution Width 13.7 % (11.5-14.5); Red Blood Cell (RBC) Count 4.63 mill/uL (4.20-5.40)
--- NOTE | 2020-06-03 10:41 | RAD ---
Chest AP view INDICATION: Cough, chest tightness and fever COMPARISON: Prior exam dated October 29, 2016 FINDINGS: Lungs: There is airspace opacities within both lower lobes, right greater than left suspicious for p neumonia. Cardiac silhouette: The cardiomediastinal silhouette appears within normal limits. Pulmonary vasculature: Normal Pleural spaces: No pleural effusion or pneumothorax is demonstrated. Upper abdomen: No abnormality seen. Osseous structures: No acute osseous abnormality. Additional findings: None. IMPRESSION: Bilateral lower lobe airspace disease suspicious for pneumonia.
[2020-06-03 10:56] LABS: BHCG - Serum Negative (NEGATIVE); Pregs Control Background? CLEAR/WHITE (CLR/WHITE); Pregs Control Bar Appear? YES (CONTROL BAR)
[2020-06-03 10:58] LABS: ALT (SGPT) 13 U/L (8-55); AST (SGOT) 18 U/L (5-34); Alkaline Phosphatase 99 U/L (40-110); Anion Gap 17 mmol/L (10-20); BUN (Urea Nitrogen) 10 mg/dL (7.0-18.7); Bilirubin, Total 0.6 mg/dL (0.2-1.2); CK (CPK) 17 U/L (29-168); Calc. Creatinine Clearance 0 mL/min (70-130); Calcium 8.9 mg/dL (7.8-10.44); Carbon Dioxide 24 mmol/L (22-29); Chloride 99 mmol/L (98-107); Globulin 4.4 g/dL (2.4-3.5); Glucose 260 mg/dL (70-105); Protein, Total 8.4 g/dL (6.0-8.3); Sodium 136 mmol/L (136-145)
[2020-06-03] MEDS ORDERED: Ketorolac Tromethamine 30 MG/ML VIAL ONE (11:01)
[2020-06-03 11:49] LABS: Bilirubin Negative (Negative); Blood, Urine Negative (Negative); Clarity Turbid (Clear); Glucose, Urine (Dipstick) 70 mg/dL (Negative); Ketone, Urine Trace mg/dL (Negative); Leukocyte 25 Leu/uL (Negative); Nitrite Negative (Negative); Protein, Urine (Dipstick) 100 mg/dL (Neg-Trace); RBC/HPF 0-3 HPF (0-3); Specific Gravity, Urine 1.033 (1.002-1.036); Urobilinogen Normal mg/dL (Less than 2); pH, Urine 5.5 (5.0-9.0)
[2020-06-03 11:52] LABS: Bacteria/HPF 1+ HPF (None Seen)
[2020-06-03 13:20] LABS: SARS-CoV-2 PCR by NAA DETECTED (NotDetected)
--- NOTE | 2020-06-22 16:13 | EKG ---
Test Reason : Blood Pressure : / mmHG Vent. Rate : 096 BPM Atrial Rate : 096 BPM P-R Int : 148 ms QRS Dur : 088 ms QT Int : 356 ms P-R-T Axes : 029 -17 059 degrees QTc Int : 449 ms Normal sinus rhythm Normal ECG Confirmed by OSMIN BRUNNER DO ([id number]), health and safety inspector MELVI JOHNSON ([id number] on 06/22/2020 4:13:04 PM Referred By: Confirmed By:OSMIN BRUNNER DO
== END 2020-06-03 11:55 | disposition home or self-care (01) ==
LOC: ERS 09:31
DX: U07.1 COVID-19 (principal); I10 Essential (primary) hypertension; E78.5 Hyperlipidemia, unspecified; E78.1 Pure hyperglyceridemia; E78.00 Pure hypercholesterolemia, unspecified; Z79.84 Long term (current) use of oral hypoglycemic drugs; Z79.899 Other long term (current) drug therapy
CPT/HCPCS: 36415; 71045; 80053; 81003; 81015; 82550; 83605; 84484; 84703; 85025; 87040; 87076; 87086; 87635; 93005; 96374; J1885; U0003; U0005

== ENCOUNTER 2021-08-31 03:02 | Inpatient (IN) | payer SELFPAY ==
[2021-08-31] MEDS ORDERED: Mag-Al 1200 mg/1200 mg/30 ML UDCUP ONE (04:34)
[2021-08-31] MEDS ORDERED: Lidocaine Viscous Sol 2% 15 ml UD Cup ONE (04:34)
[2021-08-31 04:38] LABS: Bacteria/HPF None Seen HPF (None Seen); Bilirubin Negative (Negative); Blood, Urine 2+ (Negative); Clarity Clear (Clear); Glucose, Urine (Dipstick) Greater than 1000 mg/dL (Negative); Ketone, Urine 60 mg/dL (Negative); Leukocyte Negative Leu/uL (Negative); Nitrite Negative (Negative); Pregnancy Test - Urine (BHCG) Negative (Negative); Pregu Control Background? CLEAR/WHITE (CLR/WHITE); Pregu Control Bar Appear? YES (CONTROL BAR); Protein, Urine (Dipstick) 20 mg/dL (Neg-Trace); RBC/HPF 0-3 HPF (0-3); Specific Gravity 1.043 (1.002-1.036); Specific Gravity, Urine 1.043 (1.002-1.036); Urobilinogen Normal mg/dL (Less than 2); WBC/HPF 0-3 HPF (0-3); pH, Urine 5.5 (5.0-9.0)
[2021-08-31 05:01] LABS: #Eosinphils 0.3 thou/uL (0.0-0.7); #Lymphocytes 2.1 thou/uL (1.20-3.40); #Monocytes 0.6 thou/uL (0.11-0.59); %Basophils 0.1 % (0.0-1.0); %Eosinophils 3.1 % (0.0-10.0); %Lymphocytes 19.3 % (21.0-51.0); %Monocytes 5.6 % (0.0-10.0); %Neutrophils 71.8 % (42.0-75.0); Hemoglobin 12.9 g/dL (12.0-16.0); Mean Corpuscular Hemoglobin 29.7 pg (27.0-31.0); Mean Corpuscular Volume 85.9 fL (78.0-98.0); Mean Platelet Volume 10.1 fL (7.4-10.4); Platelet Count 223 thou/uL (130-400); RBC Distribution Width 13.4 % (11.5-14.5); Red Blood Cell (RBC) Count 4.33 mill/uL (4.20-5.40); White Blood Cell (WBC) Count 11.1 thou/uL (4.8-10.8)
[2021-08-31 06:04] LABS: Chloride 99 mmol/L (98-107); Potassium 3.8 mmol/L (3.5-5.1); Sodium 131 mmol/L (136-145)
[2021-08-31 06:05] LABS: Calcium 9.9 mg/dL (7.8-10.44); Glucose 306 mg/dL (70-105)
[2021-08-31 06:07] LABS: Anion Gap 25 mmol/L (10-20); Carbon Dioxide 11 mmol/L (22-29)
[2021-08-31 06:09] LABS: BUN (Urea Nitrogen) 8 mg/dL (7.0-18.7); Calc. Creatinine Clearance 0 mL/min (70-130)
[2021-08-31 06:11] LABS: Lipase 371 U/L (8-78)
[2021-08-31 06:28] LABS: Globulin 4.6 g/dL (2.4-3.5); Protein, Total 8.6 g/dL (6.0-8.3)
[2021-08-31 06:30] LABS: Alkaline Phosphatase 89 U/L (40-110); Bilirubin, Total 0.4 mg/dL (0.2-1.2)
[2021-08-31 06:33] LABS: AST (SGOT) 9 U/L (5-34)
[2021-08-31 06:34] LABS: ALT (SGPT) Less than 35 U/L (8-55)
[2021-08-31] MEDS ORDERED: Ondansetron PF 4 MG/2 ML Vial ONE (07:35)
[2021-08-31] MEDS ORDERED: Insulin Regular 300 UNITS/3 ML VIAL ONE (07:35)
[2021-08-31] MEDS ORDERED: Morphine 4 MG/ML VIAL ONE (07:35)
[2021-08-31] MEDS ORDERED: INSULIN REGULAR IN 0.9 % NACL 100 UNIT/100 ML BAG ONE (07:35)
[2021-08-31] MEDS ORDERED: NS 0.9% w/ 20 MEQ KCL 1,000 ML IV PRN ×2 (07:48)
[2021-08-31] MEDS ORDERED: Dextrose 5 %-0.45 % NaCl 1,000 ML IV PRN (07:48)
[2021-08-31] MEDS ORDERED: Sodium Chloride 0.9% 1,000 ML IV PRN ×4 (07:48)
[2021-08-31] MEDS ORDERED: Ondansetron PF 4 MG/2 ML Vial IVP PRN (07:48)
[2021-08-31] MEDS ORDERED: Electrolyte Replacement Protocol 1 EACH IVPB PRN (07:48)
[2021-08-31] MEDS ORDERED: Ondansetron ODT 4 MG TAB PO PRN (07:48)
[2021-08-31] MEDS ORDERED: Acetaminophen 650 MG Suppository PR PRN (07:48)
[2021-08-31] MEDS ORDERED: NS 0.9% w/ 20 MEQ KCL 1,000 ML ONE (08:39)
[2021-08-31] MEDS ORDERED: Enoxaparin Sodium 40 MG/0.4 ML SYRINGE SC SCH (09:00)
[2021-08-31 09:23] LABS: Anion Gap 24 mmol/L (10-20); BUN (Urea Nitrogen) 6 mg/dL (7.0-18.7); Calc. Creatinine Clearance 0 mL/min (70-130); Calcium 9.2 mg/dL (7.8-10.44); Carbon Dioxide 11 mmol/L (22-29); Chloride 100 mmol/L (98-107); Glucose 296 mg/dL (70-105); Sodium 131 mmol/L (136-145)
[2021-08-31] MEDS ORDERED: Morphine 2 MG/ML VIAL SLOW IVP PRN (10:30)
[2021-08-31 11:14] VITALS: BMI 36.2
[2021-08-31 11:25] LABS: SARS-CoV-2 NAA Rapid Test Not Detected (NotDetected)
[2021-08-31] MEDS: D5 1/2 NS w/20 mEq KCL 1,000 ML IV PRN ×2 (12:21→16:42)
[2021-08-31 12:49] LABS: Lactic Acid 1.9 mmol/L (0.5-2.2)
[2021-08-31 12:50] LABS: Magnesium 1.5 mg/dL (1.6-2.6)
[2021-08-31 12:54] LABS: BUN (Urea Nitrogen) Less than 4 mg/dL (7.0-18.7); Calc. Creatinine Clearance 269 mL/min (70-130); Calcium 8.2 mg/dL (7.8-10.44); Chloride 104 mmol/L (98-107); Glucose 157 mg/dL (70-105); Sodium 128 mmol/L (136-145)
[2021-08-31 12:56] LABS: Carbon Dioxide Less than 16 mmol/L (22-29)
[2021-08-31 13:02] LABS: Hemoglobin 12.6 g/dL (12.0-16.0)
[2021-08-31] MEDS ORDERED: Iopamidol 370 76% 100 ML VIAL ONE (13:42)
[2021-08-31] MEDS ORDERED: Magnesium 2 GM/50 ML(in water) 2 GM in Premix Bag 1 BAG IVPB SCH (15:30)
[2021-08-31 16:35] LABS: BUN (Urea Nitrogen) Less than 4 mg/dL (7.0-18.7); Calc. Creatinine Clearance 219 mL/min (70-130); Calcium 8.1 mg/dL (7.8-10.44); Carbon Dioxide Less than 8 mmol/L (22-29); Chloride 104 mmol/L (98-107); Glucose 192 mg/dL (70-105); Potassium 3.8 mmol/L (3.5-5.1); Sodium 130 mmol/L (136-145)
[2021-08-31 17:14] LABS: Actual Bicarbonate (HCO3a) 20.2 mEq/L (22-28); Base Excess (BEa) -4.7 mEq/L (-2.0 to +3.0); CO2 Tension 36.4 mmHg (35.0-45.0); Calcium, Ionized (arterial) 1.16 mmol/L (1.12-1.30); Carboxyhemoglobin (COHb) 0.2 gm% (0.0-3.0); Hemoglobin (Hb) 10.5 g/dL (12.0-16.0); O2 Tension (PaO2), arterial 71.2 mmHg (80.0-100.0); Potassium - ABG Lab 3.77 mmol/L (3.70-5.30); pH, Arterial 7.36 (7.35-7.45)
[2021-08-31 17:16] LABS: Puncture Site LRA
[2021-08-31] MEDS: Sodium Bicarbonate 150 MEQ in Dextrose 5% in Water 1,000 ML IV SCH (17:19)
[2021-08-31] MEDS ORDERED: Sodium Chloride 0.9% 1,000 ML IV SCH (17:30)
[2021-08-31 17:33] LABS: Lactic Acid 1.7 mmol/L (0.5-2.2)
[2021-08-31 17:36] LABS: Phosphorus 1.4 mg/dL (2.3-4.7)
[2021-08-31 17:40] LABS: Glucose 195 mg/dL (70-105)
[2021-08-31] MEDS ORDERED: Potassium Phosphate 22 MMOL in Sodium Chloride 0.9% 250 ML 250 ML IVPB SCH (18:00)
[2021-08-31] MEDS: HUMULIN R 100 UNITS in Sodium Chloride 0.9% 100 ML IVPB SCH (19:43)
[2021-08-31 20:56] LABS: Anion Gap 21 mmol/L (10-20); BUN (Urea Nitrogen) Less than 4 mg/dL (7.0-18.7); Calc. Creatinine Clearance 215 mL/min (70-130); Calcium 7.6 mg/dL (7.8-10.44); Chloride 105 mmol/L (98-107); Glucose 164 mg/dL (70-105); Potassium 3.7 mmol/L (3.5-5.1); Sodium 130 mmol/L (136-145)
[2021-08-31 20:59] LABS: Carbon Dioxide 8 mmol/L (22-29)
[2021-08-31] MEDS: Enoxaparin Sodium 40 MG/0.4 ML SYRINGE SC SCH (21:24)
[2021-08-31] MEDS: Famotidine/PF 20 mg/2ml Vial SLOW IVP SCH (21:25)
[2021-08-31] MEDS: Acetaminophen 325 MG TAB PO PRN (21:27)
[2021-08-31 22:48] LABS: Glucose 163 mg/dL (70-105)
[2021-09-01 00:30] LABS: Anion Gap 19 mmol/L (10-20); BUN (Urea Nitrogen) Less than 4 mg/dL (7.0-18.7); Calc. Creatinine Clearance 229 mL/min (70-130); Carbon Dioxide 13 mmol/L (22-29); Chloride 105 mmol/L (98-107); Glucose 161 mg/dL (70-105); Potassium 3.5 mmol/L (3.5-5.1); Sodium 133 mmol/L (136-145)
[2021-09-01] MEDS: Sodium Bicarbonate 150 MEQ in Dextrose 5% in Water 1,000 ML IV SCH ×3 (01:56→15:41)
[2021-09-01 02:26] LABS: Glucose 162 mg/dL (70-105)
[2021-09-01 05:13] LABS: Glucose 175 mg/dL (70-105)
[2021-09-01 05:22] LABS: Triglycerides 2840 mg/dL (Less than 150)
[2021-09-01 05:27] LABS: Anion Gap 20 mmol/L (10-20); BUN (Urea Nitrogen) Less than 4 mg/dL (7.0-18.7); Calc. Creatinine Clearance 207 mL/min (70-130); Calcium 8.1 mg/dL (7.8-10.44); Carbon Dioxide 13 mmol/L (22-29); Chloride 103 mmol/L (98-107); Glucose 177 mg/dL (70-105); Potassium 3.9 mmol/L (3.5-5.1); Sodium 132 mmol/L (136-145)
[2021-09-01 05:28] LABS: Lipase 149 U/L (8-78); Magnesium 1.9 mg/dL (1.6-2.6)
[2021-09-01 06:22] LABS: #Eosinphils 0.2 thou/uL (0.0-0.7); #Lymphocytes 1.6 thou/uL (1.20-3.40); #Monocytes 0.4 thou/uL (0.11-0.59); #Neutrophils 4.9 thou/uL (1.40-6.50); %Basophils 0.4 % (0.0-1.0); %Lymphocytes 22.7 % (21.0-51.0); %Monocytes 6.1 % (0.0-10.0); %Neutrophils 67.9 % (42.0-75.0); Mean Corpuscular HGB CONC 33.9 g/dL (32.0-36.0); Mean Corpuscular Hemoglobin 29.2 pg (27.0-31.0); Mean Corpuscular Volume 85.8 fL (78.0-98.0); Platelet Count 188 thou/uL (130-400); RBC Distribution Width 13.6 % (11.5-14.5); Red Blood Cell (RBC) Count 3.43 mill/uL (4.20-5.40); White Blood Cell (WBC) Count 7.1 thou/uL (4.8-10.8)
[2021-09-01] MEDS ORDERED: Magnesium 2 GM/50 ML(in water) 2 GM in Premix Bag 1 BAG IVPB SCH (06:30)
[2021-09-01 07:00] LABS: Glucose 191 mg/dL (70-105)
[2021-09-01] MEDS: Acetaminophen 325 MG TAB PO PRN ×2 (08:26→16:00)
[2021-09-01] MEDS: Famotidine/PF 20 mg/2ml Vial SLOW IVP SCH ×2 (08:27→21:37)
[2021-09-01] MEDS: Enoxaparin Sodium 40 MG/0.4 ML SYRINGE SC SCH ×2 (08:28→21:37)
[2021-09-01] MEDS ORDERED: Pantoprazole 40 MG VIAL IVP SCH (09:00)
[2021-09-01 09:04] LABS: Glucose 199 mg/dL (70-105)
[2021-09-01 11:14] LABS: Glucose 193 mg/dL (70-105)
[2021-09-01 13:24] LABS: Glucose 177 mg/dL (70-105)
[2021-09-01] MEDS: HUMULIN R 100 UNITS in Sodium Chloride 0.9% 100 ML IVPB SCH (15:41)
[2021-09-01 16:43] LABS: Glucose 157 mg/dL (70-105)
[2021-09-01 19:03] LABS: Glucose 158 mg/dL (70-105)
[2021-09-01 20:34] LABS: Glucose 153 mg/dL (70-105)
[2021-09-01 22:48] LABS: Glucose 148 mg/dL (70-105)
[2021-09-02] MEDS: Sodium Bicarbonate 150 MEQ in Dextrose 5% in Water 1,000 ML IV SCH ×2 (00:11→07:46)
[2021-09-02 00:51] LABS: Glucose 147 mg/dL (70-105)
[2021-09-02 02:20] LABS: Glucose 164 mg/dL (70-105)
[2021-09-02 04:32] LABS: Anion Gap 11 mmol/L (10-20); BUN (Urea Nitrogen) Less than 4 mg/dL (7.0-18.7); Calc. Creatinine Clearance 202 mL/min (70-130); Calcium 8.6 mg/dL (7.8-10.44); Carbon Dioxide 27 mmol/L (22-29); Chloride 101 mmol/L (98-107); Glucose 191 mg/dL (70-105); Lipase 48 U/L (8-78); Potassium 3.5 mmol/L (3.5-5.1); Sodium 135 mmol/L (136-145)
[2021-09-02 04:40] LABS: Triglycerides 1792 mg/dL (Less than 150)
[2021-09-02 06:43] LABS: Glucose 289 mg/dL (70-105)
[2021-09-02] MEDS: Gemfibrozil 600 MG TAB PO SCH ×2 (07:44→16:54)
[2021-09-02] MEDS: Acetaminophen 325 MG TAB PO PRN (07:44)
[2021-09-02 08:15] LABS: Glucose 207 mg/dL (70-105)
[2021-09-02] MEDS: Famotidine/PF 20 mg/2ml Vial SLOW IVP SCH ×2 (10:18→21:53)
[2021-09-02] MEDS: Enoxaparin Sodium 40 MG/0.4 ML SYRINGE SC SCH ×2 (10:18→21:52)
[2021-09-02] MEDS ORDERED: Propofol 1,000 MG/100 ML VIAL IV ONE (11:22)
[2021-09-02] MEDS ORDERED: Potassium Chloride 20 MEQ TAB PO SCH (11:45)
[2021-09-02] MEDS ORDERED: Loratadine 10 MG TAB PO SCH (13:00)
[2021-09-02] MEDS: HUMULIN R 100 UNITS in Sodium Chloride 0.9% 100 ML IVPB SCH (23:04)
[2021-09-03 04:48] LABS: Anion Gap 12 mmol/L (10-20); BUN (Urea Nitrogen) Less than 4 mg/dL (7.0-18.7); Calc. Creatinine Clearance 195 mL/min (70-130); Calcium 8.9 mg/dL (7.8-10.44); Carbon Dioxide 21 mmol/L (22-29); Chloride 104 mmol/L (98-107); Glucose 183 mg/dL (70-105); Potassium 3.9 mmol/L (3.5-5.1); Sodium 133 mmol/L (136-145)
[2021-09-03] MEDS: Enoxaparin Sodium 40 MG/0.4 ML SYRINGE SC SCH ×2 (08:13→20:55)
[2021-09-03] MEDS: Famotidine/PF 20 mg/2ml Vial SLOW IVP SCH ×2 (08:14→20:55)
[2021-09-03] MEDS: Gemfibrozil 600 MG TAB PO SCH ×2 (08:14→16:39)
[2021-09-03] MEDS: Loratadine 10 MG TAB PO SCH (08:14)
[2021-09-03] MEDS: Dextrose 5 %-0.45 % NaCl 1,000 ML IV SCH (18:28)
[2021-09-04 04:02] LABS: Anion Gap 14 mmol/L (10-20); BUN (Urea Nitrogen) 4 mg/dL (7.0-18.7); Calc. Creatinine Clearance 184 mL/min (70-130); Carbon Dioxide 21 mmol/L (22-29); Chloride 102 mmol/L (98-107); Glucose 174 mg/dL (70-105); Potassium 3.7 mmol/L (3.5-5.1); Sodium 133 mmol/L (136-145)
[2021-09-04] MEDS: Dextrose 5 %-0.45 % NaCl 1,000 ML IV SCH (08:42)
[2021-09-04] MEDS: Gemfibrozil 600 MG TAB PO SCH (08:44)
[2021-09-04] MEDS: Famotidine/PF 20 mg/2ml Vial SLOW IVP SCH ×2 (08:44→22:01)
[2021-09-04] MEDS: Loratadine 10 MG TAB PO SCH (08:44)
[2021-09-04] MEDS: Enoxaparin Sodium 40 MG/0.4 ML SYRINGE SC SCH ×2 (08:45→22:01)
[2021-09-04] MEDS ORDERED: HumaLOG 300 UNITS/3 ML VIAL SC PRN (12:30)
[2021-09-04] MEDS ORDERED: Dextrose 50% Abboject 50 ML SYRINGE SLOW IVP PRN (12:30)
[2021-09-04] MEDS ORDERED: Dextrose 5% in Water 1,000 ML IV PRN (12:30)
[2021-09-04] MEDS ORDERED: Insulin Glargine 30 UNITS/0.3 ML VIAL SC SCH (16:00)
[2021-09-04] MEDS: metFORMIN 500 MG TAB PO SCH (16:20)
[2021-09-04] MEDS ORDERED: Fenofibrate Nanocrystallized 145 MG TAB PO SCH (18:00)
[2021-09-04] MEDS ORDERED: Atorvastatin Calcium 40 MG TAB PO SCH (21:00)
[2021-09-05] MEDS: HumaLOG 300 UNITS/3 ML VIAL SC PRN ×2 (06:00→12:39)
[2021-09-05 06:23] LABS: Anion Gap 15 mmol/L (10-20); BUN (Urea Nitrogen) 6 mg/dL (7.0-18.7); Calc. Creatinine Clearance 176 mL/min (70-130); Calcium 9.6 mg/dL (7.8-10.44); Carbon Dioxide 21 mmol/L (22-29); Chloride 102 mmol/L (98-107); Glucose 167 mg/dL (70-105); Potassium 3.5 mmol/L (3.5-5.1); Sodium 134 mmol/L (136-145)
[2021-09-05] MEDS ORDERED: Potassium Chloride 20 MEQ TAB PO SCH (06:30)
[2021-09-05 06:31] LABS: Triglycerides 1499 mg/dL (Less than 150)
[2021-09-05] MEDS ORDERED: Glimepiride 4 MG TAB PO SCH (08:00)
[2021-09-05] MEDS: metFORMIN 500 MG TAB PO SCH (08:40)
[2021-09-05] MEDS: Famotidine/PF 20 mg/2ml Vial SLOW IVP SCH (08:40)
[2021-09-05] MEDS: Loratadine 10 MG TAB PO SCH (08:40)
[2021-09-05] MEDS: Enoxaparin Sodium 40 MG/0.4 ML SYRINGE SC SCH (08:41)
[2021-09-05 08:52] VITALS: BP 123/78; TEMP 98.4
[2021-09-05] MEDS ORDERED: Alogliptin 25 MG TAB PO SCH (09:00)
[2021-09-05] MEDS ORDERED: Insulin Glargine 30 UNITS/0.3 ML VIAL SC SCH (09:00)
== END 2021-09-05 17:35 | disposition home or self-care (01) | DRG 438 ==
LOC: ERS 03:02 → CCU 07:21 → IMCU/EMU 09-03 18:29 → T4-A 09-04 17:15
PROVIDERS: ADMIT Internal Medicine; ATTEND Internal Medicine
DX: K85.80 Other acute pancreatitis without necrosis or infection (principal); E11.10 Type 2 diabetes mellitus with ketoacidosis without coma; E87.1 Hypo-osmolality and hyponatremia; Z20.822 Contact with and (suspected) exposure to COVID-19; E78.5 Hyperlipidemia, unspecified; E78.00 Pure hypercholesterolemia, unspecified; E78.1 Pure hyperglyceridemia; I10 Essential (primary) hypertension; K80.20 Calculus of gallbladder without cholecystitis without obstruction; K76.0 Fatty (change of) liver, not elsewhere classified; Z98.51 Tubal ligation status; Z79.84 Long term (current) use of oral hypoglycemic drugs; Z79.899 Other long term (current) drug therapy
CPT/HCPCS: 36415; 36416; 36600; 74177; 76705; 80048; 80053; 81003; 81015; 81025; 82010; 82805; 83605; 83690; 83735; 84100; 84478; 85025; 93005; 96365; 96368; 96375; J1650; J1815; J2270; J2405; J3475; J3480; J3490; J7042; J7050; J7070; Q0162; Q9967; S0028; U0002

== ENCOUNTER 2022-05-21 05:14 | Inpatient (IN) | payer SELFPAY ==
[2022-05-21] MEDS ORDERED: Ondansetron PF 4 MG/2 ML Vial ONE (05:34)
[2022-05-21] MEDS ORDERED: Morphine 4 MG/ML VIAL ONE ×2 (05:34→09:05)
[2022-05-21 05:58] LABS: BHCG - Serum Negative (NEGATIVE); Pregs Control Background? CLEAR/WHITE (CLR/WHITE); Pregs Control Bar Appear? YES (CONTROL BAR)
[2022-05-21 06:44] LABS: #Eosinphils 0.4 thou/uL (0.0-0.7); #Lymphocytes 2.3 thou/uL (1.20-3.40); #Monocytes 0.5 thou/uL (0.11-0.59); #Neutrophils 6.1 thou/uL (1.40-6.50); %Basophils 0.3 % (0.0-1.0); %Eosinophils 3.9 % (0.0-10.0); %Lymphocytes 24.8 % (21.0-51.0); %Monocytes 5.5 % (0.0-10.0); %Neutrophils 65.5 % (42.0-75.0); Mean Corpuscular HGB CONC 36.4 g/dL (32.0-36.0); Mean Corpuscular Hemoglobin 31.3 pg (27.0-31.0); Mean Corpuscular Volume 85.9 fl (78.0-98.0); Mean Platelet Volume 11.1 fL (7.4-10.4); Platelet Count 197 10x3/uL (130-400); RBC Distribution Width 13.7 % (11.5-14.5); Red Blood Cell (RBC) Count 4.17 mill/uL (4.20-5.40); White Blood Cell (WBC) Count 9.3 10x3/uL (4.8-10.8)
[2022-05-21 07:31] LABS: ALT (SGPT) 16 U/L (8-55); AST (SGOT) 9 U/L (5-34); Albumin 3.9 g/dL (3.5-5.0); Alkaline Phosphatase 85 U/L (40-110); Anion Gap 29 mmol/L (10-20); BUN (Urea Nitrogen) 6 mg/dL (7.0-18.7); Bilirubin, Total 0.4 mg/dL (0.2-1.2); Calc. Creatinine Clearance 0 mL/min (70-130); Calcium 9.4 mg/dL (7.8-10.44); Chloride 96 mmol/L (98-107); Estimated GFR 102; Globulin 5.1 g/dL (2.4-3.5); Glucose 359 mg/dL (70-105); Lipase 293 U/L (8-78); Potassium 3.5 mmol/L (3.5-5.1); Sodium 129 mmol/L (136-145)
[2022-05-21 07:52] LABS: Carbon Dioxide 18 mmol/L (22-29)
[2022-05-21 07:58] LABS: Actual Bicarbonate (HCO3v) 20 mEq/L (22-28); Analyzer IN Cardio ER; Base Excess -5.4 mEq/L (-2.0 to +3.0); Calcium, Ionized (venous) 1.11 mmol/L (1.16-1.32); Chloride (VBG) 102 mmol/L (98-106); Potassium (VBG) 3.88 mmol/L (3.70-5.30); Sodium 134.3 mmol/L (133-146); pH (venous) 7.33 (7.32-7.43)
[2022-05-21 08:00] LABS: Triglycerides Greater than 3800 mg/dL (Less than 150)
[2022-05-21] MEDS ORDERED: Magnesium 2 GM/50 ML BAG (IN WATER) ONE (08:08)
[2022-05-21] MEDS ORDERED: Ondansetron PF 4 MG/2 ML Vial IVP PRN (09:01)
[2022-05-21] MEDS ORDERED: Ondansetron ODT 4 MG TAB PO PRN (09:01)
[2022-05-21] MEDS ORDERED: Dextrose 5% in Water 1,000 ML IV PRN (09:05)
[2022-05-21] MEDS ORDERED: Dextrose 50% Abboject 50 ML SYRINGE SLOW IVP PRN (09:05)
[2022-05-21] MEDS ORDERED: Potassium Chloride 20 MEQ/100 ML PREMIX BAG ONE (09:05)
[2022-05-21 09:17] LABS: Magnesium 1.6 mg/dL (1.6-2.6)
[2022-05-21 10:17] LABS: Bilirubin Negative (Negative); Blood, Urine Negative (Negative); Clarity Clear (Clear); Glucose, Urine (Dipstick) Greater than 1000 mg/dL (Negative); Ketone, Urine 60 mg/dL (Negative); Leukocyte Negative Leu/uL (Negative); Nitrite Negative (Negative); Protein, Urine (Dipstick) Negative (Neg-Trace); Specific Gravity, Urine 1.033 (1.002-1.036); Urobilinogen Normal mg/dL (Less than 2); pH, Urine 5.5 (5.0-9.0)
[2022-05-21] MEDS ORDERED: Insulin Glargine 30 UNITS/0.3 ML VIAL SC SCH (10:45)
[2022-05-21 11:41] VITALS: BMI 35.2
[2022-05-21] MEDS: Dextrose 5 %-0.45 % NaCl 1,000 ML IV SCH ×2 (11:48→23:49)
[2022-05-21 14:45] LABS: Anion Gap 23 mmol/L (10-20); BUN (Urea Nitrogen) Less than 4 mg/dL (7.0-18.7); Calc. Creatinine Clearance 204 mL/min (70-130); Calcium 8.3 mg/dL (7.8-10.44); Carbon Dioxide 10 mmol/L (22-29); Chloride 96 mmol/L (98-107); Estimated GFR 117; Glucose 269 mg/dL (70-105); Potassium 3.7 mmol/L (3.5-5.1); Sodium 125 mmol/L (136-145)
[2022-05-21] MEDS: Morphine 4 MG/ML VIAL SLOW IVP PRN ×2 (16:19→20:46)
[2022-05-21] MEDS: HumaLOG 300 UNITS/3 ML VIAL SC PRN ×2 (17:26→20:52)
[2022-05-21] MEDS: Famotidine/PF 20 mg/2ml Vial SLOW IVP SCH (20:43)
[2022-05-21] MEDS: Acetaminophen 325 MG TAB PO PRN (20:46)
[2022-05-22] MEDS: HumaLOG 300 UNITS/3 ML VIAL SC PRN ×4 (01:35→22:24)
[2022-05-22] MEDS: Morphine 4 MG/ML VIAL SLOW IVP PRN ×4 (05:20→21:15)
[2022-05-22 06:18] LABS: #Basophils 0.1 thou/uL (0.0-0.2); #Eosinphils 0.2 thou/uL (0.0-0.7); #Lymphocytes 1.6 thou/uL (1.20-3.40); #Monocytes 0.6 thou/uL (0.11-0.59); #Neutrophils 8.8 thou/uL (1.40-6.50); %Basophils 0.7 % (0.0-1.0); %Eosinophils 1.8 % (0.0-10.0); %Lymphocytes 14.4 % (21.0-51.0); Hemoglobin 12.7 g/dL (12.0-16.0); Mean Corpuscular HGB CONC 36.6 g/dL (32.0-36.0); Mean Corpuscular Hemoglobin 31.1 pg (27.0-31.0); Mean Corpuscular Volume 85.2 fl (78.0-98.0); Mean Platelet Volume 10.7 fL (7.4-10.4); Platelet Count 233 10x3/uL (130-400); RBC Distribution Width 13.9 % (11.5-14.5); Red Blood Cell (RBC) Count 4.07 mill/uL (4.20-5.40); White Blood Cell (WBC) Count 11.3 10x3/uL (4.8-10.8)
[2022-05-22 06:38] LABS: ALT (SGPT) 8 U/L (8-55); AST (SGOT) 11 U/L (5-34); Albumin 3.3 g/dL (3.5-5.0); Alkaline Phosphatase 66 U/L (40-110); Anion Gap 22 mmol/L (10-20); BUN (Urea Nitrogen) Less than 4 mg/dL (7.0-18.7); Bilirubin, Total 0.5 mg/dL (0.2-1.2); Calc. Creatinine Clearance 151 mL/min (70-130); Calcium 8.3 mg/dL (7.8-10.44); Carbon Dioxide 12 mmol/L (22-29); Chloride 101 mmol/L (98-107); Estimated GFR 109; Globulin 4.2 g/dL (2.4-3.5); Glucose 288 mg/dL (70-105); Potassium 3.6 mmol/L (3.5-5.1); Protein, Total 7.5 g/dL (6.0-8.3); Sodium 131 mmol/L (136-145)
[2022-05-22 06:54] LABS: Triglycerides 3105 mg/dL (Less than 150)
[2022-05-22] MEDS: Famotidine/PF 20 mg/2ml Vial SLOW IVP SCH ×2 (09:24→21:15)
[2022-05-22 11:19] LABS: Glucose 267 mg/dL (70-105)
[2022-05-22] MEDS: Dextrose 5 %-0.45 % NaCl 1,000 ML IV SCH ×2 (11:36→21:15)
[2022-05-22 16:01] LABS: Glucose 255 mg/dL (70-105)
[2022-05-22 21:47] LABS: Glucose 240 mg/dL (70-105)
[2022-05-23 08:30] LABS: ALT (SGPT) 8 U/L (8-55); AST (SGOT) 9 U/L (5-34); Albumin 3.2 g/dL (3.5-5.0); Alkaline Phosphatase 73 U/L (40-110); Anion Gap 10 mmol/L (10-20); BUN (Urea Nitrogen) 5 mg/dL (7.0-18.7); Bilirubin, Total 0.7 mg/dL (0.2-1.2); Calc. Creatinine Clearance 168 mL/min (70-130); Calcium 8.8 mg/dL (7.8-10.44); Carbon Dioxide 22 mmol/L (22-29); Chloride 103 mmol/L (98-107); Estimated GFR 112; Globulin 3.9 g/dL (2.4-3.5); Glucose 260 mg/dL (70-105); Potassium 3.4 mmol/L (3.5-5.1); Protein, Total 7.1 g/dL (6.0-8.3); Sodium 132 mmol/L (136-145)
[2022-05-23] MEDS: Famotidine/PF 20 mg/2ml Vial SLOW IVP SCH ×2 (08:49→20:13)
[2022-05-23 09:21] LABS: Triglycerides 1399 mg/dL (Less than 150)
[2022-05-23 11:55] LABS: Glucose 256 mg/dL (70-105)
[2022-05-23] MEDS: Dextrose 5 %-0.45 % NaCl 1,000 ML IV SCH ×2 (14:41→20:17)
[2022-05-23 17:25] LABS: Glucose 224 mg/dL (70-105)
[2022-05-23] MEDS: Acetaminophen 325 MG TAB PO PRN (20:13)
[2022-05-23 21:53] LABS: Glucose 245 mg/dL (70-105)
[2022-05-23] MEDS: HumaLOG 300 UNITS/3 ML VIAL SC PRN (23:37)
[2022-05-24] MEDS: Famotidine/PF 20 mg/2ml Vial SLOW IVP SCH (07:52)
[2022-05-24 08:09] LABS: Glucose 251 mg/dL (70-105)
[2022-05-24 08:14] LABS: Anion Gap 10 mmol/L (10-20); BUN (Urea Nitrogen) 5 mg/dL (7.0-18.7); Calc. Creatinine Clearance 172 mL/min (70-130); Calcium 8.8 mg/dL (7.8-10.44); Carbon Dioxide 22 mmol/L (22-29); Chloride 104 mmol/L (98-107); Estimated GFR 112; Glucose 252 mg/dL (70-105); Potassium 3.3 mmol/L (3.5-5.1); Sodium 133 mmol/L (136-145)
[2022-05-24 08:23] LABS: Triglycerides 964 mg/dL (Less than 150)
[2022-05-24 12:02] LABS: Glucose 281 mg/dL (70-105)
[2022-05-24] MEDS ORDERED: Glimepiride 4 MG TAB PO SCH (12:15)
[2022-05-24] MEDS: HumaLOG 300 UNITS/3 ML VIAL SC PRN ×2 (12:41→17:48)
[2022-05-24 17:35] LABS: Glucose 203 mg/dL (70-105)
[2022-05-24 17:52] VITALS: BP 133/80; TEMP 98.2
== END 2022-05-24 18:29 | disposition home or self-care (01) | DRG 440 ==
LOC: ERS 05:14 → ERHOLD 09:06 → T4-A 11:29
PROVIDERS: ADMIT Internal Medicine; ATTEND Internal Medicine
DX: K85.90 Acute pancreatitis without necrosis or infection, unspecified (principal); Z20.822 Contact with and (suspected) exposure to COVID-19; I10 Essential (primary) hypertension; E78.1 Pure hyperglyceridemia; K80.20 Calculus of gallbladder without cholecystitis without obstruction; E11.65 Type 2 diabetes mellitus with hyperglycemia; K76.0 Fatty (change of) liver, not elsewhere classified; E66.9 Obesity, unspecified; Z98.1 Arthrodesis status; Z79.84 Long term (current) use of oral hypoglycemic drugs; Z79.899 Other long term (current) drug therapy; Z68.35 Body mass index [BMI] 35.0-35.9, adult
CPT/HCPCS: 36415; 36416; 76705; 80053; 81003; 82010; 82805; 82947; 83690; 83735; 84100; 84478; 84484; 84703; 85025; 93005; 96361; 96365; 96375; 96376; J1650; J1815; J2270; J2405; J3475; J3480; J7042; S0028; U0003; U0005

== ENCOUNTER 2023-02-20 20:38 | Inpatient (IN) | payer OTHER, SELFPAY ==
[~2023-02-20 20:38] MED LIST changes: -Iopamidol 370 76% 100 ML VIAL ONE; +Iopamidol-370 76% 500 ML MDV (1 ML CHARGE) ONE
[2023-02-20] MEDS ORDERED: Morphine 4 MG/ML VIAL ONE (22:26)
[2023-02-20] MEDS ORDERED: Ondansetron PF 4 MG/2 ML Vial ONE (22:26)
[2023-02-20 22:28] LABS: BHCG - Serum Negative (NEGATIVE); Pregs Control Background? CLEAR/WHITE (CLR/WHITE); Pregs Control Bar Appear? YES (CONTROL BAR)
[2023-02-20 22:34] LABS: #Eosinphils 0.3 thou/uL (0.0-0.7); #Monocytes 0.6 thou/uL (0.11-0.59); #Neutrophils 8.3 thou/uL (1.40-6.50); %Basophils 0.3 % (0.0-1.0); %Eosinophils 2.8 % (0.0-10.0); %Lymphocytes 19.3 % (21.0-51.0); %Monocytes 5.4 % (0.0-10.0); %Neutrophils 71.2 % (42.0-75.0); Hematocrit 36.7 % (36.0-47.0); Mean Corpuscular HGB CONC 34.6 g/dL (32.0-36.0); Mean Corpuscular Hemoglobin 29.6 pg (27.0-31.0); Mean Corpuscular Volume 85.5 fl (78.0-98.0); Mean Platelet Volume 12.6 fL (7.4-10.4); Platelet Count 234 10x3/uL (130-400); RBC Distribution Width 14.6 % (11.5-14.5); Red Blood Cell (RBC) Count 4.29 mill/uL (4.20-5.40); White Blood Cell (WBC) Count 11.6 10x3/uL (4.8-10.8)
[2023-02-20 22:35] LABS: Hemoglobin 12.7 g/dL (12.0-16.0)
[2023-02-20 22:44] LABS: Magnesium 1.6 mg/dL (1.6-2.6)
[2023-02-20 22:44] LABS: Bacteria/HPF None Seen HPF (None Seen); Bilirubin Negative (Negative); Blood, Urine Trace (Negative); CAUTI Indications for Culture Pelvic or flank pain; Clarity Turbid (Clear); Glucose, Urine (Dipstick) 500 mg/dL (Negative); Ketone, Urine 20 mg/dL (Negative); Leukocyte 25 Leu/uL (Negative); Nitrite 2+ (Negative); Protein, Urine (Dipstick) 100 mg/dL (Neg-Trace); RBC/HPF 0-3 HPF (0-3); Specific Gravity, Urine 1.036 (1.002-1.036); Urobilinogen Normal mg/dL (Less than 2); pH, Urine 5.5 (5.0-9.0)
[2023-02-20 22:46] LABS: Urine Culture Reflex No No
[2023-02-20 22:50] LABS: Triglycerides Greater than 3800 mg/dL (Less than 150)
[2023-02-20 22:52] LABS: Actual Bicarbonate (HCO3v) 22.1 mEq/L (22-28); Base Excess -2.1 mEq/L (-2.0 to +3.0); Calcium, Ionized (venous) 1.14 mmol/L (1.16-1.32); Chloride (VBG) 101 mmol/L (98-106); Hematocrit-VBG 39 % (36.0-47.0); Hemoglobin (Hb) 13.2 g/dL (11.7-16.0); Potassium (VBG) 3.82 mmol/L (3.70-5.30); Sodium 137 mmol/L (133-146); pH (venous) 7.405 (7.32-7.43)
[2023-02-20 23:02] LABS: Troponin I Less than 0.010 ng/mL (< 0.028)
[2023-02-20] MEDS ORDERED: Acetaminophen 325 MG TAB PO PRN (23:45)
[2023-02-20] MEDS ORDERED: Ondansetron PF 4 MG/2 ML Vial IVP PRN (23:45)
[2023-02-20] MEDS ORDERED: Ondansetron ODT 4 MG TAB SL PRN (23:45)
[2023-02-21] MEDS ORDERED: Morphine 4 MG/ML VIAL ONE
[2023-02-21 00:25] LABS: ALT (SGPT) 14 U/L (8-55); AST (SGOT) 10 U/L (5-34); Albumin 3.9 g/dL (3.5-5.0); Alkaline Phosphatase 80 U/L (40-110); Bilirubin, Total 0.3 mg/dL (0.2-1.2); Calc. Creatinine Clearance 0 mL/min (70-130); Calcium 9.8 mg/dL (7.8-10.44); Chloride 99 mmol/L (98-107); Estimated GFR 110; Globulin 4.3 g/dL (2.4-3.5); Glucose 173 mg/dL (70-105); Lipase 233 U/L (8-78); Potassium 3.6 mmol/L (3.5-5.1); Protein, Total 8.2 g/dL (6.0-8.3); Sodium 132 mmol/L (136-145)
[2023-02-21 00:45] LABS: Anion Gap 20 mmol/L (10-20); Carbon Dioxide 17 mmol/L (22-29)
[2023-02-21 00:46] LABS: BUN (Urea Nitrogen) 6 mg/dL (7.0-18.7)
[2023-02-21] MEDS: HUMULIN R 100 UNITS in Sodium Chloride 0.9% 100 ML IVPB SCH ×2 (01:16→18:31)
[2023-02-21] MEDS: D5 0.9% NS w/ 20 mEq KCl 1,000 ML IV SCH ×3 (01:16→18:31)
[2023-02-21] MEDS ORDERED: Calcium Carbonate 500 MG ChewTAB PO PRN (01:18)
[2023-02-21] MEDS ORDERED: Electrolyte Replacement Protocol 1 EACH FS SCH ×2 (01:19→11:00)
[2023-02-21] MEDS ORDERED: Dextrose 5% in Water 1,000 ML IV PRN (01:29)
[2023-02-21] MEDS ORDERED: Dextrose 50% Abboject 50 ML SYRINGE SLOW IVP PRN (01:29)
[2023-02-21] MEDS ORDERED: Glucagon 1 MG/ML KIT IM PRN (01:29)
[2023-02-21 01:38] VITALS: BMI 34.3
[2023-02-21 01:47] LABS: Hemoglobin A1c 7.4 % (4.0-6.0)
[2023-02-21 04:56] LABS: #Eosinphils 0.2 thou/uL (0.0-0.7); #Monocytes 0.6 thou/uL (0.11-0.59); %Basophils 0.2 % (0.0-1.0); %Lymphocytes 15.7 % (21.0-51.0); %Monocytes 6.4 % (0.0-10.0); %Neutrophils 75.1 % (42.0-75.0); Hematocrit 31.1 % (36.0-47.0); Hemoglobin 11.1 g/dL (12.0-16.0); Mean Corpuscular HGB CONC 35.7 g/dL (32.0-36.0); Mean Corpuscular Hemoglobin 30.8 pg (27.0-31.0); Mean Corpuscular Volume 86.4 fl (78.0-98.0); Mean Platelet Volume 12.6 fL (7.4-10.4); Platelet Count 200 10x3/uL (130-400); RBC Distribution Width 14.8 % (11.5-14.5); White Blood Cell (WBC) Count 9.4 10x3/uL (4.8-10.8)
[2023-02-21] MEDS: Morphine 2 MG/ML VIAL SLOW IVP PRN ×2 (05:14→16:27)
[2023-02-21] MEDS ORDERED: Magnesium 2 GM/50 ML(in water) 2 GM in Premix Bag 1 BAG IVPB SCH ×2 (06:00→19:15)
[2023-02-21 06:23] LABS: Albumin 3.2 g/dL (3.5-5.0)
[2023-02-21 06:24] LABS: Chloride 98 mmol/L (98-107); Potassium 3.3 mmol/L (3.5-5.1); Sodium 128 mmol/L (136-145)
[2023-02-21 06:25] LABS: Calcium 8.7 mg/dL (7.8-10.44)
[2023-02-21 06:26] LABS: Glucose 211 mg/dL (70-105); Protein, Total 8.2 g/dL (6.0-8.3)
[2023-02-21 06:28] LABS: Bilirubin, Total 0.3 mg/dL (0.2-1.2)
[2023-02-21 06:29] LABS: Alkaline Phosphatase 65 U/L (40-110); Calc. Creatinine Clearance 183 mL/min (70-130); Estimated GFR 114
[2023-02-21 06:30] LABS: BUN (Urea Nitrogen) Less than 4 mg/dL (7.0-18.7)
[2023-02-21 06:31] LABS: AST (SGOT) 9 U/L (5-34); Magnesium 1.6 mg/dL (1.6-2.6)
[2023-02-21 06:32] LABS: ALT (SGPT) 11 U/L (8-55); Lipase 213 U/L (8-78)
[2023-02-21 06:59] LABS: Carbon Dioxide 11 mmol/L (22-29)
[2023-02-21 07:03] LABS: Anion Gap 22 mmol/L (10-20)
[2023-02-21] MEDS ORDERED: Potassium Chloride 20 MEQ TAB PO SCH ×2 (08:00→09:00)
[2023-02-21] MEDS ORDERED: Famotidine/PF 20 mg/2ml Vial SLOW IVP SCH (09:00)
[2023-02-21] MEDS ORDERED: FLU VACC QS2023-24(6MOS UP)/PF 60 MCG/0.5 ML SYRINGE IM ONE (09:00)
[2023-02-21] MEDS: Lisinopril 10 MG TAB PO SCH (09:18)
[2023-02-21] MEDS: Famotidine 20 MG TAB PO SCH ×2 (09:19→20:08)
[2023-02-21 17:01] LABS: Chloride 99 mmol/L (98-107); Magnesium 1.6 mg/dL (1.6-2.6); Potassium 3.6 mmol/L (3.5-5.1); Sodium 127 mmol/L (136-145)
[2023-02-21 17:02] LABS: Calcium 8.8 mg/dL (7.8-10.44); Glucose 195 mg/dL (70-105)
[2023-02-21 17:06] LABS: BUN (Urea Nitrogen) Less than 4 mg/dL (7.0-18.7); Calc. Creatinine Clearance 177 mL/min (70-130); Estimated GFR 113
[2023-02-21 17:38] LABS: Phosphorus 1.1 mg/dL (2.3-4.7)
[2023-02-21 17:59] LABS: Carbon Dioxide 8 mmol/L (22-29)
[2023-02-21 18:00] LABS: Anion Gap 24 mmol/L (10-20)
[2023-02-21] MEDS ORDERED: Potassium Phosphate 22 MMOL in Sodium Chloride 0.9% 250 ML 250 ML IVPB SCH (19:15)
[2023-02-21 19:59] LABS: Actual Bicarbonate (HCO3v) 21.6 mEq/L (22-28); Base Excess -4.1 mEq/L (-2.0 to +3.0); Calcium, Ionized (venous) 1.15 mmol/L (1.16-1.32); Chloride (VBG) 107 mmol/L (98-106); Hematocrit-VBG 33 % (36.0-47.0); Hemoglobin (Hb) 11.2 g/dL (11.7-16.0); Potassium (VBG) 3.78 mmol/L (3.70-5.30); Sodium 138 mmol/L (133-146)
[2023-02-21] MEDS ORDERED: Ondansetron PF 4 MG/2 ML Vial IVP PRN (20:03)
[2023-02-21] MEDS: Acetaminophen 325 MG TAB PO PRN (20:17)
[2023-02-21 20:24] LABS: BUN (Urea Nitrogen) Less than 4 mg/dL (7.0-18.7); Calc. Creatinine Clearance 160 mL/min (70-130); Calcium 8.2 mg/dL (7.8-10.44); Carbon Dioxide Less than 16 mmol/L (22-29); Chloride 99 mmol/L (98-107); Estimated GFR 111; Glucose 159 mg/dL (70-105); Potassium 3.4 mmol/L (3.5-5.1); Sodium 127 mmol/L (136-145)
[2023-02-21] MEDS ORDERED: Potassium Chloride 20 MEQ in Premix Bag 1 BAG IVPB SCH (23:00)
[2023-02-22 04:27] LABS: Anion Gap 22 mmol/L (10-20); BUN (Urea Nitrogen) Less than 4 mg/dL (7.0-18.7); Calc. Creatinine Clearance 177 mL/min (70-130); Chloride 104 mmol/L (98-107); Potassium 3.9 mmol/L (3.5-5.1); Sodium 131 mmol/L (136-145)
[2023-02-22 04:28] LABS: Cardiac Risk 38.7 (Less than 4.5); Cholesterol 658 mg/dl (< 200 Desired); Estimated GFR 113; Glucose 204 mg/dL (70-105); HDL Cholesterol 17 mg/dL (>60 Neg Risk); Magnesium 2.2 mg/dL (1.6-2.6); Triglycerides 3694 mg/dL (Less than 150)
[2023-02-22 04:32] LABS: Carbon Dioxide 9 mmol/L (22-29)
[2023-02-22] MEDS ORDERED: Sodium Bicarb 50 MEQ/50 ML VIAL IVP SCH (05:00)
[2023-02-22 05:23] LABS: Actual Bicarbonate (HCO3a) 18.8 mEq/L (22-28); Base Excess (BEa) -6.2 mEq/L (-2.0 to +3.0); CO2 Tension 35.4 mmHg (35.0-45.0); Calcium, Ionized (arterial) 1.17 mmol/L (1.12-1.30); Carboxyhemoglobin (COHb) 0.4 gm% (0.0-3.0); Hematocrit-ABG 32 % (36.0-47.0); Hemoglobin (Hb) 10.9 g/dL (12.0-16.0); O2 Tension (PaO2), arterial 74.9 mmHg (80.0-100.0); Potassium - ABG Lab 3.93 mmol/L (3.70-5.30); pH, Arterial 7.343 (7.35-7.45)
[2023-02-22 05:30] LABS: Puncture Site LRA
[2023-02-22] MEDS: Acetaminophen 325 MG TAB PO PRN ×2 (05:35→15:40)
[2023-02-22 05:36] LABS: Lactic Acid 1.4 mmol/L (0.5-2.2)
[2023-02-22] MEDS: D5 0.9% NS w/ 20 mEq KCl 1,000 ML IV SCH ×2 (06:49→16:40)
[2023-02-22 07:05] LABS: Bacteria/HPF None Seen HPF (None Seen); Bilirubin Negative (Negative); Blood, Urine Negative (Negative); Clarity Clear (Clear); Glucose, Urine (Dipstick) Greater than 1000 mg/dL (Negative); Ketone, Urine 40 mg/dL (Negative); Leukocyte Negative Leu/uL (Negative); Nitrite Negative (Negative); Protein, Urine (Dipstick) 20 mg/dL (Neg-Trace); RBC/HPF 0-3 HPF (0-3); Specific Gravity, Urine 1.024 (1.002-1.036); Urobilinogen Normal mg/dL (Less than 2); WBC/HPF 0-3 HPF (0-3); pH, Urine 5.5 (5.0-9.0)
[2023-02-22 07:57] LABS: Phosphorus 2.2 mg/dL (2.3-4.7); Potassium 3.9 mmol/L (3.5-5.1)
[2023-02-22] MEDS: Famotidine 20 MG TAB PO SCH ×2 (08:38→20:31)
[2023-02-22] MEDS: Lisinopril 10 MG TAB PO SCH (08:38)
[2023-02-22 12:16] LABS: Glucose 131 mg/dL (70-105)
[2023-02-22 12:44] LABS: Glucose 131 mg/dL (70-105)
[2023-02-22 13:13] LABS: Glucose 133 mg/dL (70-105)
[2023-02-22 14:13] LABS: Glucose 128 mg/dL (70-105)
[2023-02-22 15:16] LABS: Glucose 174 mg/dL (70-105)
[2023-02-22] MEDS: HUMULIN R 100 UNITS in Sodium Chloride 0.9% 100 ML IVPB SCH (15:42)
[2023-02-22 16:23] LABS: Glucose 181 mg/dL (70-105)
[2023-02-22 17:43] LABS: Glucose 178 mg/dL (70-105)
[2023-02-22 18:06] LABS: Potassium 3.9 mmol/L (3.5-5.1)
[2023-02-22 18:30] LABS: Glucose 174 mg/dL (70-105)
[2023-02-22 19:38] LABS: Glucose 161 mg/dL (70-105)
[2023-02-22 20:32] LABS: Glucose 149 mg/dL (70-105)
[2023-02-22 21:42] LABS: Glucose 141 mg/dL (70-105)
[2023-02-22 22:31] LABS: Glucose 141 mg/dL (70-105)
[2023-02-22 23:41] LABS: Glucose 135 mg/dL (70-105)
[2023-02-23 01:00] LABS: Glucose 139 mg/dL (70-105)
[2023-02-23 02:24] LABS: Glucose 163 mg/dL (70-105)
[2023-02-23 04:37] LABS: Anion Gap 13 mmol/L (10-20); BUN (Urea Nitrogen) Less than 4 mg/dL (7.0-18.7); Calc. Creatinine Clearance 202 mL/min (70-130); Calcium 8.3 mg/dL (7.8-10.44); Carbon Dioxide 20 mmol/L (22-29); Chloride 107 mmol/L (98-107); Estimated GFR 117; Glucose 178 mg/dL (70-105); Potassium 3.7 mmol/L (3.5-5.1); Sodium 136 mmol/L (136-145)
[2023-02-23 04:39] LABS: Phosphorus 2.6 mg/dL (2.3-4.7)
[2023-02-23 04:43] LABS: Magnesium 1.9 mg/dL (1.6-2.6)
[2023-02-23 06:01] LABS: Glucose 174 mg/dL (70-105)
[2023-02-23 07:02] LABS: Glucose 166 mg/dL (70-105)
[2023-02-23 07:22] LABS: Glucose 160 mg/dL (70-105)
[2023-02-23] MEDS ORDERED: Magnesium 2 GM/50 ML(in water) 2 GM in Premix Bag 1 BAG IVPB SCH (08:00)
[2023-02-23] MEDS: Lisinopril 10 MG TAB PO SCH (08:27)
[2023-02-23] MEDS: Famotidine 20 MG TAB PO SCH ×2 (08:27→20:31)
[2023-02-23] MEDS: D5 0.9% NS w/ 20 mEq KCl 1,000 ML IV SCH ×3 (08:27→23:55)
[2023-02-23 08:33] LABS: Glucose 156 mg/dL (70-105)
[2023-02-23 09:14] LABS: Glucose 150 mg/dL (70-105)
[2023-02-23 10:09] LABS: Glucose 147 mg/dL (70-105)
[2023-02-23 11:13] LABS: Glucose 165 mg/dL (70-105)
[2023-02-23] MEDS ORDERED: Potassium Chloride 20 MEQ TAB PO SCH (13:00)
[2023-02-23 14:28] LABS: Glucose 203 mg/dL (70-105)
[2023-02-23 15:48] LABS: Glucose 180 mg/dL (70-105)
[2023-02-23 16:30] LABS: Glucose 180 mg/dL (70-105)
[2023-02-23 17:22] LABS: Glucose 160 mg/dL (70-105)
[2023-02-23 18:24] LABS: Glucose 182 mg/dL (70-105)
[2023-02-23] MEDS: Acetaminophen 325 MG TAB PO PRN (20:34)
[2023-02-23 20:49] LABS: Glucose 137 mg/dL (70-105)
[2023-02-23 21:41] LABS: Glucose 129 mg/dL (70-105)
[2023-02-23 22:42] LABS: Glucose 141 mg/dL (70-105)
[2023-02-24 00:51] LABS: Glucose 143 mg/dL (70-105)
[2023-02-24 04:39] LABS: Anion Gap 10 mmol/L (10-20); BUN (Urea Nitrogen) Less than 4 mg/dL (7.0-18.7); Calc. Creatinine Clearance 202 mL/min (70-130); Calcium 8.8 mg/dL (7.8-10.44); Carbon Dioxide 24 mmol/L (22-29); Chloride 107 mmol/L (98-107); Estimated GFR 117; Glucose 121 mg/dL (70-105); Potassium 3.7 mmol/L (3.5-5.1); Sodium 137 mmol/L (136-145)
[2023-02-24 04:49] LABS: Triglycerides 1280 mg/dL (Less than 150)
[2023-02-24 06:06] LABS: Glucose 113 mg/dL (70-105)
[2023-02-24] MEDS: Famotidine 20 MG TAB PO SCH ×2 (10:03→19:15)
[2023-02-24] MEDS: Lisinopril 10 MG TAB PO SCH (10:03)
[2023-02-24] MEDS: D5 0.9% NS w/ 20 mEq KCl 1,000 ML IV SCH ×3 (10:51→19:16)
[2023-02-24] MEDS: Acetaminophen 325 MG TAB PO PRN (19:14)
[2023-02-25] MEDS: D5 0.9% NS w/ 20 mEq KCl 1,000 ML IV SCH (05:51)
[2023-02-25] MEDS: Famotidine 20 MG TAB PO SCH ×2 (10:41→20:52)
[2023-02-25] MEDS: Lisinopril 10 MG TAB PO SCH (10:41)
[2023-02-25] MEDS: D5 LR w/20 mEq KCL 1,000 ML IV SCH (14:04)
[2023-02-26] MEDS: D5 LR w/20 mEq KCL 1,000 ML IV SCH ×2 (00:22→10:41)
[2023-02-26] MEDS: HUMULIN R 100 UNITS in Sodium Chloride 0.9% 100 ML IVPB SCH (00:23)
[2023-02-26 04:21] LABS: Anion Gap 12 mmol/L (10-20); BUN (Urea Nitrogen) Less than 4 mg/dL (7.0-18.7); Calc. Creatinine Clearance 208 mL/min (70-130); Carbon Dioxide 26 mmol/L (22-29); Chloride 103 mmol/L (98-107); Estimated GFR 118; Glucose 79 mg/dL (70-105); Potassium 3.4 mmol/L (3.5-5.1); Sodium 138 mmol/L (136-145)
[2023-02-26] MEDS ORDERED: Potassium Chloride 20 MEQ TAB PO SCH (08:00)
[2023-02-26] MEDS: Famotidine 20 MG TAB PO SCH ×2 (09:29→20:14)
[2023-02-26] MEDS: Lisinopril 10 MG TAB PO SCH (09:30)
[2023-02-26] MEDS ORDERED: HumaLOG 300 UNITS/3 ML VIAL SC PRN (15:25)
[2023-02-26] MEDS ORDERED: Fenofibrate Nanocrystallized 145 MG TAB PO SCH (16:00)
[2023-02-26] MEDS: metFORMIN 500 MG TAB PO SCH (16:40)
[2023-02-26] MEDS ORDERED: Atorvastatin Calcium 40 MG TAB PO SCH (21:00)
[2023-02-27 07:58] VITALS: TEMP 97.2
[2023-02-27] MEDS ORDERED: Glimepiride 4 MG TAB PO SCH (08:00)
[2023-02-27] MEDS ORDERED: Fenofibrate Nanocrystallized 145 MG TAB PO SCH (09:00)
[2023-02-27] MEDS: Lisinopril 10 MG TAB PO SCH (09:25)
[2023-02-27] MEDS: metFORMIN 500 MG TAB PO SCH ×2 (09:25→14:39)
[2023-02-27] MEDS: Famotidine 20 MG TAB PO SCH (09:25)
[2023-02-27 09:26] VITALS: BP 125/63
== END 2023-02-27 16:14 | disposition home or self-care (01) | DRG 439 ==
LOC: ERS 20:38 → IMCU/EMU 23:28
PROVIDERS: ADMIT Internal Medicine; ATTEND Internal Medicine
PROC: 4A133R1 Monitoring of Arterial Saturation, Peripheral, Percutaneous Approach (ICD-10-PCS; principal; 2023-02-22)
DX: K85.90 Acute pancreatitis without necrosis or infection, unspecified (principal); E87.1 Hypo-osmolality and hyponatremia; E87.21 Acute metabolic acidosis; E78.1 Pure hyperglyceridemia; E11.9 Type 2 diabetes mellitus without complications; I10 Essential (primary) hypertension; E78.5 Hyperlipidemia, unspecified; E87.6 Hypokalemia; E83.39 Other disorders of phosphorus metabolism; E66.9 Obesity, unspecified; Z98.890 Other specified postprocedural states; Z79.899 Other long term (current) drug therapy; Z79.84 Long term (current) use of oral hypoglycemic drugs; Z98.51 Tubal ligation status; Z68.34 Body mass index [BMI] 34.0-34.9, adult
CPT/HCPCS: 36415; 36416; 36600; 74177; 80048; 80053; 80061; 81001; 82010; 82805; 82947; 83036; 83605; 83690; 83735; 84100; 84478; 84484; 84703; 85025; 93005; 96361; 96374; 96375; 96376; J1650; J1815; J2270; J2272; J2405; J3475; J3480; J3490; J7050; Q9967

== ENCOUNTER 2023-06-25 19:32 | Inpatient (IN) | payer SELFPAY ==
[2023-06-25] MEDS ORDERED: Ondansetron PF 4 MG/2 ML Vial ONE (19:58)
[2023-06-25 20:33] LABS: #Basophils 0.1 thou/uL (0.0-0.2); #Eosinphils 0.3 thou/uL (0.0-0.7); #Monocytes 0.5 thou/uL (0.11-0.59); #Neutrophils 6.7 thou/uL (1.40-6.50); %Basophils 0.5 % (0.0-1.0); %Eosinophils 3.3 % (0.0-10.0); %Monocytes 4.6 % (0.0-10.0); %Neutrophils 68.2 % (42.0-75.0); Hemoglobin 17.3 g/dL (12.0-16.0); Mean Corpuscular Volume 81.3 fl (78.0-98.0); Mean Platelet Volume 12.8 fL (7.4-10.4); Platelet Count 233 10x3/uL (130-400); RBC Distribution Width 13.7 % (11.5-14.5); Red Blood Cell (RBC) Count 4.55 mill/uL (4.20-5.40); White Blood Cell (WBC) Count 9.9 10x3/uL (4.8-10.8)
[2023-06-25 20:41] LABS: Mean Corpuscular HGB CONC 46.8 g/dL (32.0-36.0)
[2023-06-25] MEDS ORDERED: Ketorolac Tromethamine 30 MG (1 mL) VIAL ONE (20:41)
[2023-06-25 20:46] LABS: BHCG - Serum Negative (NEGATIVE); Pregs Control Background? CLEAR/WHITE (CLR/WHITE); Pregs Control Bar Appear? YES (CONTROL BAR)
[2023-06-25 20:59] LABS: Troponin I Less than 0.010 ng/mL (< 0.028)
[2023-06-25 21:04] LABS: CellaVision Operator ID LAB.JMM; Platelet Adequacy Comment Platelets Normal; RBC Morphology Within Normal Limits
[2023-06-26] LABS: Lactic Acid 3.4 mmol/L (0.5-2.2)
[2023-06-26 00:09] LABS: Albumin 3.3 g/dL (3.5-5.0)
[2023-06-26 00:11] LABS: Calcium 8.6 mg/dL (7.8-10.44); Chloride 103 mmol/L (98-107); Glucose 324 mg/dL (70-105); Potassium 3.7 mmol/L (3.5-5.1); Sodium 132 mmol/L (136-145)
[2023-06-26 00:13] LABS: Anion Gap 25 mmol/L (10-20); Bilirubin, Total 0.3 mg/dL (0.2-1.2); Globulin 3.8 g/dL (2.4-3.5); Protein, Total 7.1 g/dL (6.0-8.3)
[2023-06-26 00:14] LABS: Alkaline Phosphatase 79 U/L (40-110)
[2023-06-26] MEDS ORDERED: Ondansetron PF 4 MG/2 ML Vial IVP PRN (00:14)
[2023-06-26 00:15] LABS: BUN (Urea Nitrogen) 8 mg/dL (7.0-18.7); Calc. Creatinine Clearance 0 mL/min (70-130); Estimated GFR 108
[2023-06-26 00:16] LABS: AST (SGOT) 9 U/L (5-34)
[2023-06-26 00:17] LABS: ALT (SGPT) 12 U/L (8-55); Magnesium 1.7 mg/dL (1.6-2.6)
[2023-06-26 00:18] LABS: Carbon Dioxide 8 mmol/L (22-29); Lipase 158 U/L (8-78)
[2023-06-26] MEDS ORDERED: Dextrose 5 %-0.45 % NaCl 1,000 ML IV PRN (00:23)
[2023-06-26] MEDS ORDERED: Sodium Chloride 0.9% 1,000 ML IV PRN ×3 (00:23)
[2023-06-26] MEDS ORDERED: NS 0.9% w/ 20 MEQ KCL 1,000 ML IV PRN ×2 (00:23)
[2023-06-26] MEDS ORDERED: Electrolyte Replacement Protocol 1 EACH IVPB PRN (00:23)
[2023-06-26] MEDS ORDERED: NS 0.9% w/ 40 MEQ KCL 1,000 ML IV SCH (01:00)
[2023-06-26] MEDS ORDERED: INSULIN REGULAR IN 0.9 % NACL 100 UNITS/100 ML BAG ONE (01:15)
[2023-06-26 01:58] VITALS: BMI 33.3
[2023-06-26] MEDS: Sodium Chloride 0.9% 1,000 ML IV PRN (02:32)
[2023-06-26] MEDS ORDERED: Morphine 4 MG/ML VIAL SLOW IVP PRN (02:45)
[2023-06-26] MEDS: HUMULIN R 100 UNITS in Sodium Chloride 0.9% 100 ML IVPB SCH (02:45)
[2023-06-26] MEDS: D5 1/2 NS w/20 mEq KCL 1,000 ML IV PRN (02:46)
[2023-06-26] MEDS ORDERED: hydrALAZINE 20 MG/ML VIAL SLOW IVP PRN (02:52)
[2023-06-26] MEDS: Acetaminophen 325 MG TAB PO PRN (03:40)
[2023-06-26 05:13] LABS: Bacteria/HPF None Seen HPF (None Seen); Bilirubin Negative (Negative); Blood, Urine Negative (Negative); CAUTI Indications for Culture Dysuria,urgency,freq; Clarity Clear (Clear); Glucose, Urine (Dipstick) Greater than 1000 mg/dL (Negative); Ketone, Urine 40 mg/dL (Negative); Leukocyte Negative Leu/uL (Negative); Nitrite Negative (Negative); Protein, Urine (Dipstick) 10 mg/dL (Neg-Trace); Urobilinogen Normal mg/dL (Less than 2); WBC/HPF 0-3 HPF (0-3); pH, Urine 5.5 (5.0-9.0)
[2023-06-26 05:15] LABS: Specific Gravity, Urine 1.058 (1.002-1.036)
[2023-06-26 05:16] LABS: Urine Culture Reflex No No
[2023-06-26 05:36] LABS: Hematocrit 32.9 % (36.0-47.0); Manual Diff?? YES; Mean Corpuscular HGB CONC 43.5 g/dL (32.0-36.0); Mean Corpuscular Hemoglobin 36.6 pg (27.0-31.0); Mean Platelet Volume 12.6 fL (7.4-10.4); Platelet Count 195 10x3/uL (130-400); RBC Distribution Width 14.2 % (11.5-14.5); Red Blood Cell (RBC) Count 3.91 mill/uL (4.20-5.40); White Blood Cell (WBC) Count 8.6 10x3/uL (4.8-10.8)
[2023-06-26 05:41] LABS: Hemoglobin A1c 9.9 % (4.0-6.0)
[2023-06-26 05:55] LABS: Lactic Acid 3.4 mmol/L (0.5-2.2)
[2023-06-26 05:58] LABS: Magnesium 1.5 mg/dL (1.6-2.6)
[2023-06-26 06:02] LABS: BUN (Urea Nitrogen) Less than 4 mg/dL (7.0-18.7); Calc. Creatinine Clearance 149 mL/min (70-130); Calcium 8.6 mg/dL (7.8-10.44); Carbon Dioxide Less than 16 mmol/L (22-29); Chloride 100 mmol/L (98-107); Estimated GFR 108; Glucose 246 mg/dL (70-105); Potassium 3.1 mmol/L (3.5-5.1); Sodium 129 mmol/L (136-145)
[2023-06-26 06:04] LABS: Phosphorus Less than 1.0 mg/dL (2.3-4.7)
[2023-06-26 06:15] LABS: Delete Auto Diff?? YES
[2023-06-26 07:14] LABS: Band 2 % (5-11); Eosinophils 4 % (0-10); Lymphocytes 26 % (21-51); Monocytes 8 % (0-10); Neutrophil 59 % (42-75); Platelet Adequacy Comment Platelets Normal; Polychromasia SLIGHT = 2-3 cells (100X) (0-2/hpf); Reactive Lymphocytes 1 % (0-10)
[2023-06-26 07:51] LABS: Hemoglobin 14.3 g/dL (12.0-16.0)
[2023-06-26 07:52] LABS: Mean Corpuscular Volume 84.1 fl (78.0-98.0)
[2023-06-26 09:09] LABS: Hemoglobin 13.5 g/dL (12.0-16.0); Manual Diff?? YES; Mean Platelet Volume 12.6 fL (7.4-10.4); Platelet Count 195 10x3/uL (130-400); RBC Distribution Width 14.1 % (11.5-14.5); Red Blood Cell (RBC) Count 3.88 mill/uL (4.20-5.40); White Blood Cell (WBC) Count 8.4 10x3/uL (4.8-10.8)
[2023-06-26 09:10] LABS: Delete Auto Diff?? YES
[2023-06-26 09:32] LABS: BUN (Urea Nitrogen) Less than 4 mg/dL (7.0-18.7); Calc. Creatinine Clearance 182 mL/min (70-130); Calcium 8.4 mg/dL (7.8-10.44); Chloride 103 mmol/L (98-107); Estimated GFR 114; Glucose 201 mg/dL (70-105); Potassium 3.4 mmol/L (3.5-5.1); Sodium 131 mmol/L (136-145)
[2023-06-26 09:38] LABS: Carbon Dioxide Less than 16 mmol/L (22-29)
[2023-06-26 09:41] LABS: Anion Gap 19 mmol/L (10-20)
[2023-06-26 09:43] LABS: Band 9 % (5-11); CellaVision Operator ID LAB.GE; Eosinophils 5 % (0-10); Large Platelets 2.1 % (0-5); Lymphocytes 17 % (21-51); Monocytes 6 % (0-10); Neutrophil 61 % (42-75); Platelet Adequacy Comment Platelets Normal; Polychromasia SLIGHT = 2-3 cells HPF (0-2); Reactive Lymphocytes 1 % (0-10); Total Cell Count 97
[2023-06-26] MEDS: Pantoprazole 40 MG VIAL IVP SCH (09:51)
[2023-06-26] MEDS: Magnesium 2 GM/50 ML(in water) 2 GM in Premix 1 BAG IVPB SCH ×2 (09:51→23:51)
[2023-06-26] MEDS: Potassium Phosphate 30 MMOL in Sodium Chloride 0.9% 250 ML 250 ML IVPB SCH (09:51)
[2023-06-26] MEDS: Enoxaparin 40 MG (0.4 mL) SYRINGE SC SCH (09:51)
[2023-06-26 14:10] LABS: Glucose 159 mg/dL (70-105)
[2023-06-26 14:14] LABS: Anion Gap 22 mmol/L (10-20); BUN (Urea Nitrogen) Less than 4 mg/dL (7.0-18.7); Calc. Creatinine Clearance 213 mL/min (70-130); Chloride 107 mmol/L (98-107); Potassium 3.7 mmol/L (3.5-5.1); Sodium 134 mmol/L (136-145)
[2023-06-26 14:15] LABS: Estimated GFR 118; Glucose 161 mg/dL (70-105)
[2023-06-26 14:20] LABS: Carbon Dioxide 9 mmol/L (22-29); Critical Call Chemistry NUR.ERG @1419
[2023-06-26 16:27] LABS: Actual Bicarbonate (HCO3v) 18.9 mEq/L (22-28); Base Excess -5.9 mEq/L (-2.0 to +3.0); Calcium, Ionized (venous) 1.11 mmol/L (1.16-1.32); Chloride (VBG) 107 mmol/L (98-106); Hematocrit-VBG 31 % (36.0-47.0); Hemoglobin (Hb) 10.6 g/dL (11.7-16.0); Potassium (VBG) 4.87 mmol/L (3.70-5.30); Sodium 135 mmol/L (133-146); pH (venous) 7.355 (7.32-7.43)
[2023-06-26 16:55] LABS: Anion Gap 18 mmol/L (10-20); BUN (Urea Nitrogen) Less than 4 mg/dL (7.0-18.7); Calc. Creatinine Clearance 164 mL/min (70-130); Calcium 7.8 mg/dL (7.8-10.44); Carbon Dioxide 13 mmol/L (22-29); Chloride 106 mmol/L (98-107); Estimated GFR 111; Glucose 330 mg/dL (70-105); Potassium 4.5 mmol/L (3.5-5.1); Sodium 132 mmol/L (136-145)
[2023-06-26 17:02] LABS: Lactic Acid 1.1 mmol/L (0.5-2.2)
[2023-06-26 17:12] LABS: Glucose 331 mg/dL (70-105)
[2023-06-26] MEDS ORDERED: Potassium Phosphate 30 MMOL in Sodium Chloride 0.9% 250 ML 250 ML IVPB SCH (17:15)
[2023-06-26] MEDS: Ezetimibe 10 MG TAB PO SCH (18:41)
[2023-06-26] MEDS: Sodium Bicarbonate 150 MEQ in Dextrose 5% in Water 1,000 ML IV SCH (18:41)
[2023-06-26 19:00] LABS: Magnesium 1.9 mg/dL (1.6-2.6); Phosphorus 2.1 mg/dL (2.3-4.7)
[2023-06-26 20:01] LABS: Glucose 141 mg/dL (70-105)
[2023-06-26 20:11] LABS: Glucose 181 mg/dL (70-105)
[2023-06-26] MEDS: Atorvastatin Calcium 20 MG TAB PO SCH (20:36)
[2023-06-26 22:13] LABS: Glucose 164 mg/dL (70-105)
[2023-06-26 22:32] LABS: Glucose 124 mg/dL (70-105)
[2023-06-26] MEDS: Dextrose 50% Abboject 50 ML SYRINGE SLOW IVP PRN (22:45)
[2023-06-27 00:10] LABS: Glucose 107 mg/dL (70-105)
[2023-06-27 00:17] LABS: Glucose 175 mg/dL (70-105)
[2023-06-27 00:43] LABS: Anion Gap 12 mmol/L (10-20); BUN (Urea Nitrogen) Less than 4 mg/dL (7.0-18.7); Calc. Creatinine Clearance 182 mL/min (70-130); Carbon Dioxide 23 mmol/L (22-29); Chloride 105 mmol/L (98-107); Estimated GFR 114; Glucose 230 mg/dL (70-105); Potassium 3.8 mmol/L (3.5-5.1); Sodium 136 mmol/L (136-145)
[2023-06-27 01:43] LABS: Glucose 143 mg/dL (70-105)
[2023-06-27 02:37] LABS: Glucose 260 mg/dL (70-105)
[2023-06-27] MEDS: D5 0.9% NS w/ 20 mEq KCl 1,000 ML IV SCH (02:46)
[2023-06-27 03:51] LABS: #Eosinphils 0.3 thou/uL (0.0-0.7); #Monocytes 0.4 thou/uL (0.11-0.59); #Neutrophils 4.3 thou/uL (1.40-6.50); %Basophils 0.3 % (0.0-1.0); %Eosinophils 3.6 % (0.0-10.0); %Monocytes 5.9 % (0.0-10.0); %Neutrophils 58.7 % (42.0-75.0); Hematocrit 30.8 % (36.0-47.0); Mean Corpuscular HGB CONC 34.1 g/dL (32.0-36.0); Mean Platelet Volume 12.4 fL (7.4-10.4); Platelet Count 195 10x3/uL (130-400); RBC Distribution Width 14.6 % (11.5-14.5); Red Blood Cell (RBC) Count 3.62 mill/uL (4.20-5.40); White Blood Cell (WBC) Count 7.3 10x3/uL (4.8-10.8)
[2023-06-27 04:00] LABS: Hemoglobin 10.5 g/dL (12.0-16.0); Mean Corpuscular Volume 85.1 fl (78.0-98.0)
[2023-06-27 04:14] LABS: Anion Gap 16 mmol/L (10-20); BUN (Urea Nitrogen) Less than 4 mg/dL (7.0-18.7); Calc. Creatinine Clearance 227 mL/min (70-130); Calcium 8.4 mg/dL (7.8-10.44); Carbon Dioxide 19 mmol/L (22-29); Chloride 108 mmol/L (98-107); Estimated GFR 120; Glucose 138 mg/dL (70-105); Lipase 54 U/L (8-78); Magnesium 2.3 mg/dL (1.6-2.6); Potassium 3.5 mmol/L (3.5-5.1); Sodium 139 mmol/L (136-145)
[2023-06-27 04:18] LABS: Phosphorus 2.6 mg/dL (2.3-4.7)
[2023-06-27 05:13] LABS: Glucose 194 mg/dL (70-105)
[2023-06-27 06:32] LABS: Glucose 170 mg/dL (70-105)
[2023-06-27 07:17] LABS: Glucose 179 mg/dL (70-105)
[2023-06-27] MEDS: Potassium Chloride 20 MEQ in Premix 1 BAG IVPB SCH (09:26)
[2023-06-27 10:24] LABS: Glucose 171 mg/dL (70-105)
[2023-06-27 13:24] LABS: Glucose 272 mg/dL (70-105)
[2023-06-27 17:11] LABS: Critical Call Chemistry NUR.BMD1 @1711; Glucose 413 mg/dL (70-105)
[2023-06-27 19:18] LABS: Glucose 145 mg/dL (70-105)
[2023-06-27] MEDS: Ezetimibe 10 MG TAB PO SCH (21:15)
[2023-06-27 21:58] LABS: Glucose 104 mg/dL (70-105)
[2023-06-28 00:13] LABS: Glucose 150 mg/dL (70-105)
[2023-06-28 01:41] LABS: Glucose 263 mg/dL (70-105)
[2023-06-28 03:49] LABS: Glucose 159 mg/dL (70-105)
[2023-06-28 04:10] LABS: #Eosinphils 0.3 thou/uL (0.0-0.7); #Monocytes 0.5 thou/uL (0.11-0.59); #Neutrophils 4.4 thou/uL (1.40-6.50); %Basophils 0.1 % (0.0-1.0); %Eosinophils 4.1 % (0.0-10.0); %Lymphocytes 30.2 % (21.0-51.0); %Monocytes 6.8 % (0.0-10.0); %Neutrophils 58.3 % (42.0-75.0); Hematocrit 29.2 % (36.0-47.0); Hemoglobin 9.8 g/dL (12.0-16.0); Mean Corpuscular HGB CONC 33.6 g/dL (32.0-36.0); Mean Corpuscular Hemoglobin 29.1 pg (27.0-31.0); Mean Corpuscular Volume 86.6 fl (78.0-98.0); Mean Platelet Volume 12.2 fL (7.4-10.4); Platelet Count 192 10x3/uL (130-400); RBC Distribution Width 14.9 % (11.5-14.5); Red Blood Cell (RBC) Count 3.37 mill/uL (4.20-5.40); White Blood Cell (WBC) Count 7.6 10x3/uL (4.8-10.8)
[2023-06-28 04:37] LABS: ALT (SGPT) 12 U/L (8-55); AST (SGOT) 13 U/L (5-34); Albumin 3.1 g/dL (3.5-5.0); Alkaline Phosphatase 64 U/L (40-110); Anion Gap 14 mmol/L (10-20); BUN (Urea Nitrogen) Less than 4 mg/dL (7.0-18.7); Bilirubin, Total 0.3 mg/dL (0.2-1.2); Calc. Creatinine Clearance 175 mL/min (70-130); Calcium 8.8 mg/dL (7.8-10.44); Carbon Dioxide 18 mmol/L (22-29); Chloride 107 mmol/L (98-107); Estimated GFR 113; Globulin 3.5 g/dL (2.4-3.5); Glucose 139 mg/dL (70-105); Potassium 3.7 mmol/L (3.5-5.1); Protein, Total 6.6 g/dL (6.0-8.3); Sodium 135 mmol/L (136-145)
[2023-06-28 06:18] LABS: Glucose 203 mg/dL (70-105)
[2023-06-28 10:24] LABS: Glucose 332 mg/dL (70-105)
[2023-06-28] MEDS ORDERED: Sodium Bicarbonate 70 MEQ in Sodium Chloride 0.45% 1,000 ML IV SCH (11:00)
[2023-06-28 14:29] LABS: Glucose 107 mg/dL (70-105)
[2023-06-28 16:02] LABS: Glucose 196 mg/dL (70-105)
[2023-06-28] MEDS: SODIUM BICARBONATE IV SCH (17:45)
[2023-06-28] MEDS: POTASSIUM CHLORIDE IV SCH (17:45)
[2023-06-28] MEDS: [UNRECOGNIZED DRUG - OTHER] IV SCH (17:45)
[2023-06-28] MEDS: Sodium Bicarbonate 75 MEQ in Dextrose 5 %-0.45 % NaCl 1,000 ML IV SCH (17:47)
[2023-06-28 18:32] LABS: Glucose 363 mg/dL (70-105)
[2023-06-28 20:46] LABS: Glucose 237 mg/dL (70-105)
[2023-06-28 23:17] LABS: Glucose 333 mg/dL (70-105)
[2023-06-29 01:17] LABS: Glucose 182 mg/dL (70-105)
[2023-06-29 03:40] LABS: Glucose 127 mg/dL (70-105)
[2023-06-29 04:34] LABS: #Eosinphils 0.2 thou/uL (0.0-0.7); #Monocytes 0.5 thou/uL (0.11-0.59); #Neutrophils 3.8 thou/uL (1.40-6.50); %Basophils 0.3 % (0.0-1.0); %Eosinophils 3.9 % (0.0-10.0); %Lymphocytes 23.3 % (21.0-51.0); %Monocytes 7.7 % (0.0-10.0); %Neutrophils 64.5 % (42.0-75.0); Hematocrit 30.9 % (36.0-47.0); Hemoglobin 10.1 g/dL (12.0-16.0); Mean Corpuscular HGB CONC 32.7 g/dL (32.0-36.0); Mean Corpuscular Hemoglobin 28.4 pg (27.0-31.0); Mean Corpuscular Volume 86.8 fl (78.0-98.0); Mean Platelet Volume 12.1 fL (7.4-10.4); Platelet Count 201 10x3/uL (130-400); RBC Distribution Width 14.5 % (11.5-14.5); Red Blood Cell (RBC) Count 3.56 mill/uL (4.20-5.40)
[2023-06-29 04:59] LABS: ALT (SGPT) 16 U/L (8-55); AST (SGOT) 16 U/L (5-34); Alkaline Phosphatase 60 U/L (40-110); Anion Gap 12 mmol/L (10-20); BUN (Urea Nitrogen) Less than 4 mg/dL (7.0-18.7); Bilirubin, Total 0.3 mg/dL (0.2-1.2); Calc. Creatinine Clearance 178 mL/min (70-130); Calcium 8.6 mg/dL (7.8-10.44); Carbon Dioxide 25 mmol/L (22-29); Chloride 106 mmol/L (98-107); Estimated GFR 113; Globulin 3.2 g/dL (2.4-3.5); Glucose 210 mg/dL (70-105); Potassium 4.4 mmol/L (3.5-5.1); Protein, Total 6.2 g/dL (6.0-8.3); Sodium 139 mmol/L (136-145)
[2023-06-29] MEDS ORDERED: Dextrose 5 % And 0.9 % NaCl 1,000 ML IV SCH (08:15)
[2023-06-29] MEDS: HUMULIN R 100 UNITS in Sodium Chloride 0.9% 100 ML IVPB SCH (12:40)
[2023-06-29] MEDS: Dextrose 5 % And 0.9 % NaCl 1,000 ML IV SCH (14:20)
[2023-06-30 04:00] LABS: #Eosinphils 0.3 thou/uL (0.0-0.7); #Monocytes 0.5 thou/uL (0.11-0.59); #Neutrophils 3.1 thou/uL (1.40-6.50); %Basophils 0.2 % (0.0-1.0); %Lymphocytes 37.1 % (21.0-51.0); %Monocytes 7.6 % (0.0-10.0); %Neutrophils 49.8 % (42.0-75.0); Hematocrit 32.4 % (36.0-47.0); Hemoglobin 10.4 g/dL (12.0-16.0); Mean Corpuscular HGB CONC 32.1 g/dL (32.0-36.0); Mean Corpuscular Hemoglobin 27.9 pg (27.0-31.0); Mean Corpuscular Volume 86.9 fl (78.0-98.0); Mean Platelet Volume 11.6 fL (7.4-10.4); Platelet Count 229 10x3/uL (130-400); RBC Distribution Width 14.4 % (11.5-14.5); Red Blood Cell (RBC) Count 3.73 mill/uL (4.20-5.40); White Blood Cell (WBC) Count 6.2 10x3/uL (4.8-10.8)
[2023-06-30 04:54] LABS: ALT (SGPT) 16 U/L (8-55); AST (SGOT) 15 U/L (5-34); Albumin 3.1 g/dL (3.5-5.0); Alkaline Phosphatase 65 U/L (40-110); Anion Gap 11 mmol/L (10-20); BUN (Urea Nitrogen) Less than 4 mg/dL (7.0-18.7); Bilirubin, Total 0.3 mg/dL (0.2-1.2); Calc. Creatinine Clearance 169 mL/min (70-130); Calcium 8.6 mg/dL (7.8-10.44); Carbon Dioxide 24 mmol/L (22-29); Chloride 106 mmol/L (98-107); Estimated GFR 112; Globulin 3.3 g/dL (2.4-3.5); Glucose 113 mg/dL (70-105); Potassium 3.3 mmol/L (3.5-5.1); Protein, Total 6.4 g/dL (6.0-8.3); Sodium 138 mmol/L (136-145)
[2023-06-30] MEDS: Potassium Chloride 20 MEQ in Premix 1 BAG IVPB SCH (05:16)
[2023-06-30] MEDS: NS 0.9% w/ 20 MEQ KCL 1,000 ML/1,000 ML BAG IV SCH (13:58)
[2023-06-30] MEDS: Potassium Chloride 20 MEQ TAB PO SCH (13:58)
[2023-06-30] MEDS: Fenofibrate Nanocrystallized 145 MG TAB PO SCH (13:58)
[2023-07-01 05:48] LABS: #Eosinphils 0.3 thou/uL (0.0-0.7); #Monocytes 0.4 thou/uL (0.11-0.59); #Neutrophils 3.5 thou/uL (1.40-6.50); %Basophils 0.3 % (0.0-1.0); %Monocytes 6.6 % (0.0-10.0); %Neutrophils 57.3 % (42.0-75.0); Hematocrit 32.8 % (36.0-47.0); Hemoglobin 10.5 g/dL (12.0-16.0); Mean Corpuscular Hemoglobin 27.6 pg (27.0-31.0); Mean Corpuscular Volume 86.1 fl (78.0-98.0); Mean Platelet Volume 11.7 fL (7.4-10.4); Platelet Count 227 10x3/uL (130-400); RBC Distribution Width 14.1 % (11.5-14.5); Red Blood Cell (RBC) Count 3.81 mill/uL (4.20-5.40)
[2023-07-01 06:05] LABS: ALT (SGPT) 16 U/L (8-55); AST (SGOT) 13 U/L (5-34); Albumin 3.1 g/dL (3.5-5.0); Alkaline Phosphatase 67 U/L (40-110); Anion Gap 10 mmol/L (10-20); BUN (Urea Nitrogen) 5 mg/dL (7.0-18.7); Bilirubin, Total 0.4 mg/dL (0.2-1.2); Calc. Creatinine Clearance 159 mL/min (70-130); Calcium 8.6 mg/dL (7.8-10.44); Carbon Dioxide 25 mmol/L (22-29); Chloride 106 mmol/L (98-107); Estimated GFR 110; Globulin 3.1 g/dL (2.4-3.5); Glucose 156 mg/dL (70-105); Lipase 18 U/L (8-78); Protein, Total 6.2 g/dL (6.0-8.3); Sodium 137 mmol/L (136-145)
[2023-07-01 12:06] VITALS: TEMP 97.1
== END 2023-07-01 12:50 | disposition home or self-care (01) | DRG 438 ==
LOC: ERS 19:32 → IMCU/EMU 06-26 00:17
PROVIDERS: ADMIT Internal Medicine; ATTEND Family Medicine
DX: K85.90 Acute pancreatitis without necrosis or infection, unspecified (principal); E11.10 Type 2 diabetes mellitus with ketoacidosis without coma; E78.1 Pure hyperglyceridemia; I10 Essential (primary) hypertension; K80.20 Calculus of gallbladder without cholecystitis without obstruction; E66.9 Obesity, unspecified; F10.90 Alcohol use, unspecified, uncomplicated; N94.9 Unspecified condition associated with female genital organs and menstrual cycle; E83.39 Other disorders of phosphorus metabolism; Z79.899 Other long term (current) drug therapy; Z79.84 Long term (current) use of oral hypoglycemic drugs; Z98.891 History of uterine scar from previous surgery; Z68.33 Body mass index [BMI] 33.0-33.9, adult; E78.00 Pure hypercholesterolemia, unspecified; Z98.51 Tubal ligation status
CPT/HCPCS: 36415; 36416; 71045; 74177; 80048; 80053; 81001; 82010; 82805; 83036; 83605; 83690; 83735; 83880; 84100; 84478; 84484; 84703; 85025; 87040; 93005; 96361; 96374; 96375; C9113; J1650; J1815; J1885; J2405; J3475; J3480; J3490; J7030; J7042; J7050; J7070; J7999; Q9967